=== PATIENT | female | born 1960 | race Caucasian/White ===

== ENCOUNTER → 2018-06-30 | Outpatient (CLI) | payer OTHER ==
--- NOTE | 2018-06-30 16:01 | XR ---
EXAMINATION TYPE: XR knee 4V LT DATE OF EXAM: 06/30/2018 COMPARISON: None HISTORY: Knee pain TECHNIQUE: 4 view left knee FINDINGS: Joint spaces are preserved. No joint effusion is evident. Soft tissues are unremarkable. IMPRESSION: 1. Normal 4 view left knee
== END | disposition home or self-care (01) ==
LOC: RADXRMAIN 15:39
PROVIDERS: ATTEND Family Medicine
DX: M25.562 Pain in left knee (principal)

== ENCOUNTER → 2019-03-15 | Outpatient (CLI) | payer OTHER ==
[2019-03-15 13:19] VITALS: BP 132/75; PULSE 85; RESP 18
--- NOTE | 2019-03-16 15:29 | P.PAINCN ---
History of Present Illness - Reason for Consult Consult date: 03/15/19 - History of Present Illness This is a 58-year-old patient referred who presents with chronic neck pain with radiation to left lateral arm and forearm with associated numbness in this region which began approximately 1.5 months ago. She denies any inciting event. She was last seen in our clinic in 2014 at which point we did a series of cervical epidural steroid injections. Patient had complete resolution of pain from this, until it returned about 1.5 months ago. She reports that her current pain complaint today is similar to the pain she experienced prior to these injections. Pain is described as constant, worse with sitting, better with medications. The pain is worse at night. Patient has been taking medications from primary care physician including gabapentin 300 mg 3 times a day and meloxicam every other day with some relief. Patient denies adverse drug effects from medications. Patient also denies new-onset weakness, bowel/bladder incontinence, or any other signs or symptoms of cauda equina syndrome. There are no signs of acute intoxication, and no indications of medication diversion or overuse. She has not had surgery or physical therapy recently. In addition to above, 13-point review of systems is also negative for chest pain, shortness of breath, changes in vision, changes in hearing, new onset weakness, abdominal pain, diarrhea, extreme fatigue, malaise, fever, skin changes, homicidal or suicidal ideation, or bowel or bladder incontinence. Physical exam: Vital Signs: Reviewed in EMR GENERAL: Well appearing, in no acute distress PSYCH: Mood and affect is appropriate. Awake, alert, and oriented SKIN: Skin color, texture, turgor normal, no rashes or lesions HEENT: Normocephalic, atraumatic. EOM intact CV: No pedal edema RESP: Respirations are unlabored, no audible wheezing GI: Abdomen non-distended MUSCULOSKELETAL: Bilateral upper and lower extremity strength is normal and symmetric. No atrophy or tone abnormalities are noted. Neck: Pain to palpation over the cervical paraspinous muscles. Spurling negative, Axial Loading Test negative, Redman's sign negative. No obvious deformity or signs of trauma. Normal cervical lordotic curve and mildly limited cervical spine range of motion Extremities: Peripheral joint ROM is full and pain free without obvious instability or laxity in all four extremities. No edema or skin discolorations noted. Gait: Gait is normal NEUR: Bilateral upper extremity coordination and muscle stretch reflexes are physiologic and symmetric. Reduced sensation to light touch in the lateral aspect of left arm and forearm. Cranial nerves are grossly intact. Imaging: Cervical spine MRI from 2013 shows a C5-6 disc herniation with indentation and narrowing of the anterior subarachnoid space. Patient has not had any further imaging since 2014 Assessment: 1. Cervical radiculopathy 2. Cervicalgia Plan: 1. Explanation: Opioid and psychological risk scores were reviewed. Diagnoses, prognoses, and multiple treatment options including but not limited to physical therapy, interventional therapies, adjuvant medical therapies, narcotic medication therapies, and surgery were discussed with the patient and all questions were answered to the patient's satisfaction. 2. Opioid agreement: None 3. Counseling: The patient was counseled extensively on SMOKING CESSATION, BODY MASS INDEX, EXERCISE. Specifically, the patient was instructed regarding the importance of smoking cessation, weight control, and exercise in the context of both chronic pain and overall health. 4. Procedures: None currently, we'll consider repeat cervical epidural injections after cervical MRI is reviewed 5. Consultations: None 6. Investigations: C-spine MRI ordered today 7. Medications: Encouraged patient to discuss increasing gabapentin dose with primary care physician 8. Disposition: Return to clinic following C-spine MRI Past Medical History Past Medical History: Hyperlipidemia, Hypertension, Musculoskeletal Disorder, Osteoarthritis (OA), Thyroid Disorder Additional Past Medical History / Comment(s): chronic back pain,CARPAL TUNNEL LUCIANO. WRISTS History of Any Multi-Drug Resistant Organisms: None Reported Past Surgical History: Section, Tonsillectomy, Tubal Ligation Additional Past Surgical History / Comment(s): THYROIDECTOMY Past Anesthesia/Blood Transfusion Reactions: No Reported Reaction Smoking Status: Current every day smoker - Past Family History Mother Family Medical History: Cancer Additional Family Medical History / Comment(s): siste cancer Father Family Medical History: Dementia Sister(s) Family Medical History: Cancer Additional Family Medical History / Comment(s): lining of stomach CA Medications and Allergies Home Medications Medication Instructions Recorded Confirmed Type Calcium Carbonate/Vitamin D3 600 mg PO BID 06/27/14 03/10/19 History [Calcium 600 + Vit D Tablet] Gabapentin 300 mg PO TID 06/27/14 03/10/19 History Levothyroxine Sodium [Synthroid] 112 mcg PO DAILY 06/27/14 03/10/19 History Lisinopril 5 mg PO DAILY 06/27/14 03/10/19 History Meloxicam 15 mg PO Q2D 06/27/14 03/10/19 History Hydrochlorothiazide [Hydrodiuril] 25 mg PO DAILY 08/11/14 03/10/19 History Niacin [Niacin ER] 500 mg PO DAILY 08/11/14 03/10/19 History Gemfibrozil [Lopid] 600 mg PO AC-BID 03/10/19 03/10/19 History Allergies Allergy/AdvReac Type Severity Reaction Status Date / Time penicillin G Allergy Unknown Verified 03/10/19 15:16 Childhood PQRS Measure Charge Sheet Measure #130: Documentation of Current Meds in Medical Chart: Patient's medications documented in chart Measure #226: Tobacco Use: Screen & Cessation Intervention: Pt screened for tobacco use AND intervention given Measure #111: Pneumonia Vaccination: Pneumococcal vaccine NOT administered or previously given Measure #47: Advance Care Plan: Advance care planning discussed & documented, pt chose/unable to give Measure #412: Opioid Treatment Agreement: No documentation of signed opioid treatment agreement Measure #317: Preventitive Care & Scrn High Bld Press & F/U: Normal blood pressure, f/u not required Measure #128: Body Mass Index (BMI) Screening & Follow-up: BMI documented ABOVE normal parameters - f/u documented Measure #131: Pain Assessment & Follow-up: Pain positive & plan documented, Follow-up scheduled Measure #431: Unhealthy Alcohol Use Preventative Care & Scrn: Patient not identified as an unhealthy alcohol user PQRS Narrative: Smoking Status Current every day smoker Pain Intensity [None] 0 Scale Used Numeric (1 - 10) Hx Alcohol Use (MH) No Home Medications: Ambulatory Orders Calcium Carbonate/Vitamin D3 [Calcium 600 + Vit D Tablet] 600 mg PO BID 06/27/14 Gabapentin 300 mg PO TID 06/27/14 Levothyroxine Sodium [Synthroid] 112 mcg PO DAILY 06/27/14 Lisinopril 5 mg PO DAILY 06/27/14 Meloxicam 15 mg PO Q2D 06/27/14 Hydrochlorothiazide [Hydrodiuril] 25 mg PO DAILY 08/11/14 Niacin [Niacin ER] 500 mg PO DAILY 08/11/14 Gemfibrozil [Lopid] 600 mg PO AC-BID 03/10/19
== END | disposition home or self-care (01) ==
LOC: PNWHC3 11:57
PROVIDERS: ATTEND Anesthesiology
DX: G89.29 Other chronic pain (principal); M54.12 Radiculopathy, cervical region; I10 Essential (primary) hypertension; E78.5 Hyperlipidemia, unspecified; F17.200 Nicotine dependence, unspecified, uncomplicated; Z79.899 Other long term (current) drug therapy
CPT/HCPCS: 99211

== ENCOUNTER → 2019-03-29 | Outpatient (CLI) | payer OTHER ==
[2019-03-29 13:04] VITALS: BP 128/76; PULSE 90; RESP 16
--- NOTE | 2019-03-29 15:49 | P.PAINPG ---
Subjective Progress Note Date: 03/29/19 This is a 58-year-old patient who presents with chronic neck pain with radiation to left lateral arm and forearm with associated numbness in this region which began approximately 1.5 months ago. She had similar pain complaints in 2014 at which point we did a series of cervical epidural steroid injections. Patient had complete resolution of pain from this, until it returned about 1.5 months ago. We last evaluated patient in February and recommended a cervical spine MRI. She returns to clinic today to discuss the results of this. See results below. She does not report any new change in symptomatology since last visit stop Patient has been taking medications from primary care physician including gabapentin 300 mg 3 times a day and meloxicam every other day with some relief. Patient denies adverse drug effects from medications. Patient also denies new- onset weakness, bowel/bladder incontinence, or any other signs or symptoms of cauda equina syndrome. There are no signs of acute intoxication, and no indications of medication diversion or overuse. She has not had surgery or physical therapy recently. In addition to above, 13-point review of systems is also negative for chest pain, shortness of breath, changes in vision, changes in hearing, new onset weakness, abdominal pain, diarrhea, extreme fatigue, malaise, fever, skin changes, homicidal or suicidal ideation, or bowel or bladder incontinence. Physical exam: Vital Signs: Reviewed in EMR GENERAL: Well appearing, in no acute distress PSYCH: Mood and affect is appropriate. Awake, alert, and oriented SKIN: Skin color, texture, turgor normal, no rashes or lesions HEENT: Normocephalic, atraumatic. EOM intact CV: No pedal edema RESP: Respirations are unlabored, no audible wheezing GI: Abdomen non-distended MUSCULOSKELETAL: Bilateral upper and lower extremity strength is normal and symmetric. No atrophy or tone abnormalities are noted. Neck: Pain to palpation over the cervical paraspinous muscles. Spurling negative, Axial Loading Test negative, Redman's sign negative. No obvious deformity or signs of trauma. Normal cervical lordotic curve and mildly limited cervical spine range of motion Extremities: Peripheral joint ROM is full and pain free without obvious instability or laxity in all four extremities. No edema or skin discolorations noted. Gait: Gait is normal NEUR: Bilateral upper extremity coordination and muscle stretch reflexes are physiologic and symmetric. Reduced sensation to light touch in the lateral aspect of left arm and forearm as well as all 5 fingers. Cranial nerves are grossly intact. Imaging: Cervical MRI done on 03/26/2019 at [facility] shows herniated discs at C5-6 with possible displacement of anterior portion of cervical cord. She also has mild disc herniations at C3-4 and C4-5. Assessment: 1. Cervical radiculopathy 2. Cervicalgia Plan: 1. Procedures: Will schedule left paramedian C7-T1 epidural steroid injection. 2. The patient was counseled extensively on SMOKING CESSATION. The patient does not seem motivated to stop smoking. 3. Medications: Per primary care physician. Had recommended discussion with PCP regarding increasing gabapentin dosage. Disposition: For above-mentioned procedure Objective - Vital Signs Vital signs: Vital Signs Temp Pulse 90 03/29/19 12:41 Resp 16 03/29/19 12:41 BP 128/76 03/29/19 12:41 Pulse Ox 95 03/29/19 12:41 Intake & Output 03/28/19 03/29/19 03/29/19 18:59 06:59 18:59 Weight 72.121 kg PQRS Measure Charge Sheet Measure #130: Documentation of Current Meds in Medical Chart: Patient's medications documented in chart Measure #226: Tobacco Use: Screen & Cessation Intervention: Pt screened for tobacco use AND intervention given Measure #111: Pneumonia Vaccination: Pneumococcal vaccine NOT administered or previously given Measure #47: Advance Care Plan: Advance care planning discussed & documented, pt chose/unable to give Measure #412: Opioid Treatment Agreement: No documentation of signed opioid treatment agreement Measure #317: Preventitive Care & Scrn High Bld Press & F/U: Normal blood pressure, f/u not required Measure #128: Body Mass Index (BMI) Screening & Follow-up: BMI documented ABOVE normal parameters - f/u documented Measure #131: Pain Assessment & Follow-up: Pain positive & plan documented, Follow-up scheduled Measure #431: Unhealthy Alcohol Use Preventative Care & Scrn: Patient not identified as an unhealthy alcohol user PQRS Narrative: Smoking Status Current every day smoker Blood Pressure 128/76 Pain Intensity [Left Back] 5 Scale Used Numeric (1 - 10) Hx Alcohol Use (MH) No Home Medications: Ambulatory Orders Calcium Carbonate/Vitamin D3 [Calcium 600 + Vit D Tablet] 600 mg PO BID 06/27/14 Gabapentin 600 mg PO TID 06/27/14 Levothyroxine Sodium [Synthroid] 112 mcg PO DAILY 06/27/14 Lisinopril 5 mg PO DAILY 06/27/14 Meloxicam 15 mg PO Q2D 06/27/14 Hydrochlorothiazide [Hydrodiuril] 25 mg PO DAILY 08/11/14 Niacin [Niacin ER] 500 mg PO DAILY 08/11/14 Gemfibrozil [Lopid] 600 mg PO AC-BID 03/10/19 Controlled Substance Measures - Controlled Substance Measures Is patient prescribed a controlled substance at discharge?: No
== END ==
LOC: PNWHC3 12:10
PROVIDERS: ATTEND Anesthesiology
DX: M54.12 Radiculopathy, cervical region (principal); F17.200 Nicotine dependence, unspecified, uncomplicated; Z79.899 Other long term (current) drug therapy; Z79.1 Long term (current) use of non-steroidal anti-inflammatories (NSAID)
CPT/HCPCS: 99211

== ENCOUNTER 2019-04-14 08:31 | Day surgery (SDC) | payer OTHER ==
[2019-04-09 11:17] VITALS: BMI 31.0
[~2019-04-14 08:31] MED LIST: LACTATED RINGERS 1,000 ML IV SCH
[2019-04-14] MEDS ORDERED: LIDOCAINE 1% 20 ML VIAL (10MG/ML) FOR IV START INTRADERMA ONE (09:28)
[2019-04-14 09:36] VITALS: TEMP 97.7
[2019-04-14 11:10] VITALS: BP 121/79; PULSE 72; RESP 18
--- NOTE | 2019-04-14 11:24 | P.PCN ---
Date of Procedure: 04/14/19 Procedure(s) Performed: Diagnosis: Cervical radiculopathy Cervical degenerative disc disease POSTOPERATIVE DIAGNOSIS: Diagnoses: Cervical radiculopathy Cervical degenerative disc disease PROCEDURE Cervical Epidural steroid injection under fluoroscopic guidance at the C7-T1 interspace using left paramedian approach Cervical epidurogram ANESTHESIA: Local with 1% lidocaine 3 ml and IV sedation with Versed and fentanyl Fluoroscopy was used for the procedure and images were saved in the radiology portion of the chart. EBL: Minimal PROCEDURE INDICATION: The patient presents with cervical radicular symptoms unresponsive to conservative treatment. This is the first cervical epidural steroid injection. PROCEDURE DESCRIPTION / TECHNIQUE: The patient was seen and identified in the preoperative area. Risks, benefits, complications including but not limited to infections ,bleeding ,allergic reaction to the medications ,nerve damage and incomplete pain relief, and alternatives were discussed with the patient. The patient agreed to proceed with the procedure and signed the consent. IV was started, and vital signs were stable. Patient was taken to the OR and time out was completed. The patient was placed in the prone position on procedure table and a pillow was placed under the chest area. The cervical area was prepped and draped in the usual sterile fashion. Conscious sedation was used during the procedure to decrease patients anxiety. Vital signs was monitored during the entire procedure. Using anterior-posterior fluoroscopy, the C7-T1 interlaminar space was identified and the skin over this site was marked and then infiltrated with 1% lidocaine subcutaneously. Subsequently, a 20-gauge Tuohy epidural needle was inserted and advanced toward the epidural space using the loss of resistance technique and guided by AP and 50 oblique fluoroscopy. The correct needle position in the epidural space was verified. After negative aspiration for blood and CSF and in the absence of paresthesias, Isovue 200 2 mL's was injected under live fluoroscopy with good epidural spread. After negative aspiration, a 5 ml mixture containing 10 mg of dexamethasone, 3 mL of preservative free normal saline and 1 mL of 1% lidocaine was injected. Needle was withdrawn intact, skin was cleansed, and bandages were applied. COMPLICATIONS: None DISPOSITION / PLANS: The patient was placed in a supine position and transferred to the recovery area in a stable condition for observation. There was no evidence of lower extremity motor or sensory deficit after the procedure. Patient was discharged from the recovery room after meeting discharge criteria. Home discharge instructions were given to the patient by the staff. The patient will be scheduled for repeat procedure in 4 weeks.
--- NOTE | 2019-04-14 12:50 | FL ---
Fluoroscopy INDICATION: Pain FINDINGS: Fluoroscopy time: 10 seconds. Images obtained: 4. IMPRESSIONS: 1. Documentation of fluoroscopy.
== END 2019-04-14 11:25 | disposition home or self-care (01) ==
LOC: ORPAIN 08:31
PROVIDERS: ATTEND Anesthesiology
DX: M50.11 Cervical disc disorder with radiculopathy, high cervical region (principal); F17.200 Nicotine dependence, unspecified, uncomplicated; Z79.1 Long term (current) use of non-steroidal anti-inflammatories (NSAID); Z79.890 Hormone replacement therapy; Z79.899 Other long term (current) drug therapy
CPT/HCPCS: 62321; J2250; J1100; J3010; Q9966; 99152

== ENCOUNTER 2019-05-03 08:16 | Day surgery (SDC) | payer OTHER ==
[2019-04-28 14:32] VITALS: BMI 31.0
[2019-05-03 09:17] VITALS: RESP 16; TEMP 97
[2019-05-03] MEDS ORDERED: LIDOCAINE 1% 20 ML VIAL (10MG/ML) FOR IV START INTRADERMA ONE (09:24)
--- NOTE | 2019-05-03 10:13 | P.PCN ---
Date of Procedure: 05/03/19 Procedure(s) Performed: . PROCEDURE 1. Cervical epidural steroid injection under fluoroscopic guidance, C7-T1 (fluoroscopy images available in the radiology department ) 2. Cervical epidurogram. PREOPERATIVE DIAGNOSIS: 1- Cervical Degenerative Disc Diseases 2- Cervical radiculopathy. POSTOPERATIVE DIAGNOSIS: : 1- Cervical Degenerative Disc Diseases , 2- Cervical radiculopathy. ANESTHESIA: Local anesthesia with lidocaine 1 % , and moderate sedation, with Versed 2 mg and Fentanyl 50 mcg. EBL 0 PROCEDURE INDICATION: The patient with neck pain and radiculitis unresponsive to conservative treatment consents for procedure. PROCEDURE DESCRIPTION / TECHNIQUE: The patient was seen and identified in the preoperative area. Risks, benefits, complications, including but not limited to infections ,bleeding , allergic reactions to the medications ,and not complete pain releife, and alternatives were discussed with the patient, the patient agreed to proceed with the procedure and signed the consent. Patient was taken to the OR and time out was completed. The patient was placed in the prone position on the procedure table. A pillow was placed under the patients chest to increase the cervical interlaminar space. The cervical area was prepped and draped in the usual sterile fashion. Vital signs were closely monitored during the procedure. Conscious sedation was used during the procedure to decrease patients anxiety. Using anterior-posterior fluoroscopy, the C7-T1 interlaminar space was identified and the skin over this site was marked and then infiltrated with 1% lidocaine subcutaneously. Subsequently, a 20-gauge 3-1/2-inch Tuohy epidural needle was inserted and advanced toward the epidural space by means of the ``hanging-drop technique and guided by AP and lateral fluoroscopy. The correct needle position in the epidural space was verified with the injection of 2 mL of the water soluble contrast dye Isovue-200 and observing an excellent epidurogram with the epidural spread of the dye, after negative aspiration for blood and CSF and in the absence of paresthesias. Again after negative aspiration, mixture containing 20 mg Dexamethasone and 2 ml of preservative- free normal saline injected and a washout of epidurogram was seen. Needle was withdrawn intact, skin was cleansed, and bandages were applied. Complications= none. Disposition= patient was placed in supine position and transferred to the recovery room area in stable condition and there was no evidence of upper or lower extremity motor or sensory deficit after the procedure patient was discharged from recovery room after discharge criteria met and home discharge instructions was given by the staff and patient will follow with the pain clinic in 2-4 weeks
[2019-05-03] MEDS ORDERED: IV FLUID CONTINUATION 1,000 ML IV ONE ×2 (10:17)
--- NOTE | 2019-05-03 10:31 | FL ---
EXAMINATION TYPE: FL guided pain mgmt statistic DATE OF EXAM: 05/03/2019 CLINICAL HISTORY: Neck pain. TECHNIQUE: Fluoroscopy. COMPARISON: None. FINDINGS: Fluoroscopic guidance was provided during pain relief procedure performed by Dr. Guerrero . A total of 3 seconds of fluoroscopic time was utilized during the procedure and two spot images ar e acquired. Images acquired shows needle localization at roughly C5 level. IMPRESSION: As Above.
[2019-05-03 10:35] VITALS: BP 112/75; PULSE 86
== END 2019-05-03 10:47 | disposition home or self-care (01) ==
LOC: ORPAIN 08:16
PROVIDERS: ATTEND Specialist
DX: M50.10 Cervical disc disorder with radiculopathy, unspecified cervical region (principal); Z88.0 Allergy status to penicillin
CPT/HCPCS: 62321; J2250; J1100; J3010; Q9966

== ENCOUNTER → 2019-06-16 | Outpatient (CLI) | payer OTHER ==
[2019-06-16 12:00] VITALS: BP 132/72; PULSE 82; RESP 18
--- NOTE | 2019-06-16 12:43 | P.PAINPG ---
Subjective Progress Note Date: 06/16/19 This is a follow-up visit for this 58 years old female with a history of severe neck pain with radiation to the upper extremity, she is diagnosed with cervical radiculopathy and cervical degenerative disc disease, status post cervical epidural steroid injections x2, should she reported that her pain improved significantly she is able to function without any pain, she denies any numbness or tingling sensation, no motor or sensory deficits. Objective - Vital Signs Vital signs: Vital Signs Temp Pulse 82 06/16/19 11:55 Resp 18 06/16/19 11:55 BP 132/72 06/16/19 11:55 Pulse Ox 96 06/16/19 11:55 - Exam Physical Examinations : -Constitutiona : Cooperative , not in acute distress . -HEENT : nech : supple , no Lymphadenopathy , normal thyroid size . eyes : no ptosis , no icterus, no photophobia . - neurologic : Cranial nerve II to XII intact , no focal neurological deffecit . -psychatric : alert , oriented X 3 , appropriate affect , intact judgment and insight . -Lymphatic : no Lymphadenopathy . - musculoskeltal : Cervical Spine motor stregnth in the deltoid and biceps, normal right side , normal Left side motor stregnth biceps and the wrist extensors normal right side ,normal left side . motor stregnth in the triceps muscle . normal Right side , normal Left side Lumber spine moter stegnth lower extremities ,thigh and legs 5/5 Right side , 5/5 Left side Assessment and Plan Plan: Assessment and plan= cervical radiculopathy, cervical degenerative disc disease Pain improved after cervical epidural steroid injections She will follow up in the pain clinic when necessary Time with Patient: Less than 30 PQRS Measure Charge Sheet Measure #130: Documentation of Current Meds in Medical Chart: Patient's medications documented in chart Measure #226: Tobacco Use: Screen & Cessation Intervention: Pt screened for tobacco use AND intervention given Measure #111: Pneumonia Vaccination: Pneumococcal vaccine NOT administered or previously given Measure #47: Advance Care Plan: Advance care planning discussed & documented, pt chose/unable to give Measure #412: Opioid Treatment Agreement: No documentation of signed opioid treatment agreement Measure #408: Opioid Therapy Follow-up Evaluation: Patient had NO f/u eval minimum every 3 months during opioid therapy Measure #317: Preventitive Care & Scrn High Bld Press & F/U: Normal blood pressure, f/u not required Measure #128: Body Mass Index (BMI) Screening & Follow-up: BMI documented ABOVE normal parameters - f/u documented Measure #131: Pain Assessment & Follow-up: Pain positive & plan documented, Follow-up scheduled, Follow-up PRN Measure #431: Unhealthy Alcohol Use Preventative Care & Scrn: Patient not identified as an unhealthy alcohol user PQRS Narrative: Smoking Status Heavy tobacco smoker Blood Pressure 132/72 Pain Intensity [None] 0 Scale Used Numeric (1 - 10) Hx Alcohol Use (MH) No Home Medications: Ambulatory Orders Calcium Carbonate/Vitamin D3 [Calcium 600 + Vit D Tablet] 600 mg PO BID 06/27/14 Gabapentin 600 mg PO BID 06/27/14 Levothyroxine Sodium [Synthroid] 112 mcg PO DAILY 06/27/14 Lisinopril 5 mg PO DAILY 06/27/14 Meloxicam 15 mg PO Q2D 06/27/14 Hydrochlorothiazide [Hydrodiuril] 25 mg PO DAILY 08/11/14 Niacin [Niacin ER] 500 mg PO DAILY 08/11/14 Gemfibrozil [Lopid] 600 mg PO AC-BID 03/10/19 Controlled Substance Measures - Controlled Substance Measures Is patient prescribed a controlled substance at discharge?: No
== END | disposition home or self-care (01) ==
LOC: PNWHC3 11:32
PROVIDERS: ATTEND Specialist
DX: G89.29 Other chronic pain (principal); M54.12 Radiculopathy, cervical region; M50.30 Other cervical disc degeneration, unspecified cervical region; Z87.891 Personal history of nicotine dependence; Z79.1 Long term (current) use of non-steroidal anti-inflammatories (NSAID); Z79.899 Other long term (current) drug therapy
CPT/HCPCS: 99211

== ENCOUNTER 2019-09-20 07:17 | Day surgery (SDC) | payer OTHER ==
[2019-09-17 10:13] VITALS: BMI 30.4
[~2019-09-20 07:17] MED LIST changes: +DEXAMETHASONE SOD PHOSPHATE 10 MG/ML 1 ML VIAL ONE; +IOPAMIDOL M200 10 ML VIAL ONE; -LACTATED RINGERS 1,000 ML IV SCH; +MIDAZOLAM 2 MG/2 ML VIAL ONE; +fentaNYL (PF) 50 MCG/ML 2 ML AMP ONE
[2019-09-20 07:51] VITALS: RESP 16; TEMP 98.3
[2019-09-20] MEDS: LACTATED RINGERS 1,000 ML IV SCH ×2 (07:56→08:33)
--- NOTE | 2019-09-20 08:51 | P.PCN ---
Date of Procedure: 09/20/19 Procedure(s) Performed: PROCEDURE 1. Cervical epidural steroid injection under fluoroscopic guidance, C7-T1 (fluoroscopy images available in the radiology department ) 2. Cervical epidurogram. PREOPERATIVE DIAGNOSIS: 1- Cervical Degenerative Disc Diseases 2- Cervical radiculopathy. POSTOPERATIVE DIAGNOSIS: : 1- Cervical Degenerative Disc Diseases , 2- Cervical radiculopathy. ANESTHESIA: moderate sedation, with Versed 2 mg ,and Fentanyl 50 mcg. EBL 0 PROCEDURE INDICATION: The patient with neck pain and radiculitis unresponsive to conservative treatment consents for procedure. PROCEDURE DESCRIPTION / TECHNIQUE: The patient was seen and identified in the preoperative area. Risks, benefits, complications, including but not limited to infections ,bleeding , allergic reactions to the medications ,and not complete pain releife, and alternatives were discussed with the patient, the patient agreed to proceed with the procedure and signed the consent. Patient was taken to the OR and time out was completed. The patient was placed in the prone position on the procedure table. A pillow was placed under the patients chest to increase the cervical interlaminar space. The cervical area was prepped and draped in the usual sterile fashion. Vital signs were closely monitored during the procedure. Conscious sedation was used during the procedure to decrease patients anxiety. Using anterior-posterior fluoroscopy, the C7-T1 interlaminar space was identified and the skin over this site was marked and then infiltrated with 1% lidocaine subcutaneously. Subsequently, a 20-gauge 3-1/2-inch Tuohy epidural needle was inserted and advanced toward the epidural space by means of the ``hanging-drop technique and guided by AP and lateral fluoroscopy. The correct needle position in the epidural space was verified with the injection of 2 mL of the water soluble contrast dye Isovue-200 and observing an excellent epidurogram with the epidural spread of the dye, after negative aspiration for blood and CSF and in the absence of paresthesias. Again after negative aspirat ion, mixture containing 20 mg Dexamethasone and 2 ml of preservative-free normal saline injected and a washout of epidurogram was seen. Needle was withdrawn intact, skin was cleansed, and bandages were applied. Complications= none. Disposition= patient was placed in supine position and transferred to the recovery room area in stable condition and there was no evidence of upper or lower extremity motor or sensory deficit after the procedure patient was discharged from recovery room after discharge criteria met and home discharge instructions was given by the staff and patient will follow with the pain clinic in 2-4 weeks
[2019-09-20] MEDS ORDERED: IV FLUID CONTINUATION 600 ML IV ONE (08:55)
[2019-09-20 09:13] VITALS: BP 122/80; PULSE 90
--- NOTE | 2019-09-20 09:13 | FL ---
EXAMINATION TYPE: FL guided pain mgmt statistic DATE OF EXAM: 09/20/2019 CLINICAL HISTORY: Neck pain. TECHNIQUE: Fluoroscopy. COMPARISON: None. FINDINGS: Fluoroscopic guidance was provided during pain relief procedure performed by Dr. Guerrero . A total of 4 seconds of fluoroscopic time was utilized during the procedure and 0 spot images are acquired. IMPRESSION: As Above.
== END 2019-09-20 09:22 | disposition home or self-care (01) ==
LOC: ORPAIN 07:17
PROVIDERS: ATTEND Anesthesiology
DX: M50.10 Cervical disc disorder with radiculopathy, unspecified cervical region (principal); F41.9 Anxiety disorder, unspecified; Z88.0 Allergy status to penicillin
CPT/HCPCS: 62321; J2250; J1100; J3010; Q9966; 99152

== ENCOUNTER → 2019-10-19 | Outpatient (CLI) | payer OTHER ==
[2019-10-19 11:05] VITALS: BP 131/84; PULSE 110; RESP 18
--- NOTE | 2019-10-19 11:26 | P.PN ---
Progress Note - Text Progress Note Date: 10/19/19 This is a 59-year-old lady with long-standing history of neck pain with radiation to the left arm. The patient had multiple epidural steroid injection which had been helping her until recently when she stopped finding any benefits from these injections. She has numbness in the left arm with increasing pain in the left shoulder. Her MRI showed disc herniation at the C5-C6 level with indentation of the spinal cord. The patient takes 3 pills of tramadol which is not helping her pain and she used to be on Neurontin which also had to stop using because of lack of benefits. The patient denies any bowel or bladder dysfunction or any weakness in the left arm. She does have constant numbness as she states and pain radiating to the left hand. Patient denies new-onset weakness, bowel/bladder incontinence, or any other signs or symptoms of cauda equina syndrome. There are no signs of acute intoxication, and no indications of medication diversion or overuse. In addition to above, 13-point review of systems is also negative for chest pain, shortness of breath, changes in vision, changes in hearing, new onset weakness, abdominal pain, diarrhea, extreme fatigue, malaise, fever, skin changes, homicidal or suicidal ideation, or bowel or bladder incontinence. Vital Signs: Reviewed in EMR Gen: AAOx3, NAD HEENT: PERRLA,hearing grossly normal Pulm: resp unlabored Heart: Regular Neck: supple, trachea midline Neuro exam of the upper extremities: Produced but symmetrical muscle strength to 4 out of 4 bilaterally in the upper extremities. Normal and symmetrical deep tendon reflexes bilaterally and symmetrically. Straight leg raising test: Chito's test: Range of motion of the lumbar spine: Compression test is negative Tenderness in the paravertebral musculature: No tenderness in the cervical paravertebral musculature Neuro: CN II-XII grossly intact, Imaging: Reviewed in EMR/chart Assessment: Left cervical radiculopathy due to disc herniation at the C5-C6 level with indentation of the cervical spinal cord Failure to respond to cervical epidural steroid injection Plan: 1. Explanation: Opioid and psychological risk scores were reviewed. Diagnoses, prognoses, and multiple treatment options including but not limited to physical therapy, interventional therapies, adjuvant medical therapies, narcotic medication therapies, and surgery were discussed with the patient and all questions were answered to the patient's satisfaction. 2. Opioid agreement: Signed with the patient and the patient is warned not to use opioids while driving or before driving and not to combine opioids with benzodiazepines or alcohol. 3. Counseling: The patient was counseled extensively on SMOKING CESSATION, BODY MASS INDEX, EXERCISE. Specifically, the patient was instructed regarding the importance of smoking cessation, obesity, and exercise in the context of both chronic pain and overall health. 4. Procedures: None 5. Consultations: Refer to neurosurgery for evaluation 6. Investigations: None 7. Medications: None 8. Disposition: Return to clinic as needed 9. Maps were reviewed and were appropriate. PQRS measures: 1-Patient's medications are documented in the chart. 2-Tobacco use is positive, counseling given 3-Patient has not had a pneumococcal vaccine. 4-Advanced care planning discussed, patient unable to give 5-Opioid contract signed with the patient. 6-Pain positive, follow-up visit or procedure scheduled 7-Patient's blood pressure measured and documented within normal limits. The patient will follow up with his primary care physician. 8-Patient's weight was measured, and body mass index ABOVE the normal limits, and counseling was done. Patient instructed to follow up with PCP. 9-Patient WAS NOT identified as an unhealthy alcohol user.
== END | disposition home or self-care (01) ==
LOC: PNWHC3 10:47
PROVIDERS: ATTEND Anesthesiology
DX: G89.29 Other chronic pain (principal); M50.122 Cervical disc disorder at C5-C6 level with radiculopathy
CPT/HCPCS: 99211

== ENCOUNTER → 2019-11-12 | Outpatient (CLI) | payer OTHER ==
--- NOTE | 2019-11-12 12:47 | XR ---
EXAMINATION TYPE: XR chest 2V DATE OF EXAM: 11/12/2019 COMPARISON: NONE HISTORY: Presurgical study. TECHNIQUE: Frontal and lateral views of the chest are obtained. FINDINGS: There is some mild chronic parenchymal changes without suspicious focal air space opacity, pleural effusion, or pneumothorax seen. Surgical clips right paratracheal region and supraclavicular level noted. The cardiac silhouette size is upper limits of normal. The osseous structures are int act. IMPRESSION: Chronic changes without acute process.
[2019-11-12 12:48] LABS: Basophils % (A) 0 %; Eosinophils % (A) 0 %; HCT 41.2 % (34.0-46.0); HGB 13.8 gm/dL (11.4-16.0); Lymphocytes # (A) 0.8 k/uL (1.0-4.8); Lymphocytes % (A) 11 %; MCH 32.9 pg (25.0-35.0); MCHC 33.4 g/dL (31.0-37.0); MCV 98.5 fL (80.0-100.0); Mean Platelet Volume 7.6; Monocytes # (A) 0.1 k/uL (0-1.0); Monocytes % (A) 2 %; Neutrophils # (A) 6.2 k/uL (1.3-7.7); Neutrophils % (A) 86 %; Platelet Count 401 k/uL (150-450); RBC 4.19 m/uL (3.80-5.40); RDW 12.2 % (11.5-15.5); WBC 7.2 k/uL (3.8-10.6)
[2019-11-12 12:58] LABS: Appearance,Urine Clear (Clear); Bilirubin,Urine Negative (Negative); Blood,Urine Negative (Negative); Color,Urine Colorless; Glucose,Urine (UA) Negative (Negative); Ketones,Urine Negative (Negative); Leukocyte Esterase,Urine Negative (Negative); Nitrite,Urine Negative (Negative); PH, Urine 6.5 (5.0-8.0); Protein,Urine Negative (Negative); Specific Gravity,Urine 1.008 (1.001-1.035); Urobilinogen,Urine <2.0 mg/dL (<2.0)
[2019-11-12 12:59] LABS: Calcium 9.8 mg/dL (8.4-10.2); Potassium 3.9 mmol/L (3.5-5.1)
[2019-11-12 13:07] LABS: INR 0.9 (<1.2); Prothrombin Time 9.6 sec (9.0-12.0)
[2019-11-12 13:08] LABS: Partial Thromboplastin Time 20.9 sec (22.0-30.0)
== END | disposition home or self-care (01) ==
LOC: LABWHC1 11:54
PROVIDERS: ATTEND Orthopaedic Surgery Orthopaedic Surgery of the Spine
DX: Z01.818 Encounter for other preprocedural examination (principal); M48.02 Spinal stenosis, cervical region
CPT/HCPCS: 36415; 71046; 80048; 81003; 85025; 85610; 85730; 93005

== ENCOUNTER 2020-12-18 10:11 | Inpatient (IN) | payer OTHER, SELFPAY ==
--- NOTE | 2020-12-18 11:43 | ED ---
Chest Pain HPI - General Chief Complaint: Chest Pain Stated Complaint: cardiac issues Time Seen by Provider: 12/18/20 10:11 Source: patient, RN notes reviewed Mode of arrival: ambulatory Limitations: no limitations - History of Present Illness Initial Comments: This is a 60-year-old female with no prior history of heart attack or cardiac disease was transfer from [facility] for evaluation of chest pain. 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 Patient EKG done also lab work initially negative for acute findings. Patient was transferred here for further evaluation and higher level of care. Dr. Byrne [facility] later with Dr. Grisel bo at this facility. Patient will be admitted and evaluated. He currently is asymptomatic with no chest pain or shortness of breath. MD Complaint: chest pain - Related Data Home Medications Medication Instructions Recorded Confirmed Levothyroxine Sodium [Synthroid] 112 mcg PO DAILY 06/27/14 12/18/20 Meloxicam 15 mg PO Q48H 06/27/14 12/18/20 lisinopriL [Lisinopril] 5 mg PO HS 06/27/14 12/18/20 hydroCHLOROthiazide [Hydrodiuril] 25 mg PO DAILY 08/11/14 12/18/20 traMADol HCL [Ultram] 50 mg PO Q6H 09/17/19 12/18/20 Acetaminophen Tab [Tylenol Tab] 1,000 mg PO ONCE PRN 12/18/20 12/18/20 Cholecalciferol [Vitamin D3 (25 50 mcg PO HS 12/18/20 12/18/20 Mcg = 1000 Iu)] Mag Hydrox/Aluminum Hyd/Simeth 30 ml PO ONCE PRN 12/18/20 12/18/20 [Mylanta Maximum Strength Liq] Niacin 500 mg PO HS 12/18/20 12/18/20 Allergies Allergy/AdvReac Type Severity Reaction Status Date / Time celecoxib [From Celebrex] Allergy Unknown Verified 11/17/19 08:57 penicillin G Allergy Unknown Verified 11/17/19 08:53 Childhood Review of Systems ROS Statement: Those systems with pertinent positive or pertinent negative responses have been documented in the HPI. ROS Other: All systems not noted in ROS Statement are negative. Past Medical History Past Medical History: Hyperlipidemia, Hypertension, Musculoskeletal Disorder, Osteoarthritis (OA), Thyroid Disorder Additional Past Medical History / Comment(s): chronic back pain,CARPAL TUNNEL LUCIANO. WRISTS, NUMBNESS LEFT ARM History of Any Multi-Drug Resistant Organisms: None Reported Past Surgical History: Section, Tonsillectomy, Tubal Ligation Additional Past Surgical History / Comment(s): THYROIDECTOMY, PAIN CLINIC PROCEDURE Past Anesthesia/Blood Transfusion Reactions: No Reported Reaction Past Psychological History: No Psychological Hx Reported Smoking Status: Current every day smoker Past Alcohol Use History: None Reported Past Drug Use History: None Reported - Past Family History Mother Family Medical History: Cancer Additional Family Medical History / Comment(s): sister cancer Father Family Medical History: Dementia Sister(s) Family Medical History: Cancer Additional Family Medical History / Comment(s): lining of stomach CA General Exam - General Exam Comments Initial Comments: This is a well-developed well-nourished awake alert oriented 3 female Limitations: no limitations General appearance: alert, in no apparent distress Head exam: Present: atraumatic, normocephalic, normal inspection Eye exam: Present: normal appearance, PERRL, EOMI. Absent: scleral icterus, conjunctival injection, periorbital swelling ENT exam: Present: normal exam, mucous membranes moist Neck exam: Present: normal inspection. Absent: tenderness, meningismus, lymphadenopathy Respiratory exam: Present: normal lung sounds bilaterally. Absent: respiratory distress, wheezes, rales, rhonchi, stridor Cardiovascular Exam: Present: regular rate, normal rhythm, normal heart sounds. Absent: systolic murmur, diastolic murmur, rubs, gallop, clicks GI/Abdominal exam: Present: soft, normal bowel sounds. Absent: distended, ten derness, guarding, rebound, rigid Extremities exam: Present: normal inspection, full ROM, normal capillary refill. Absent: tenderness, pedal edema, joint swelling, calf tenderness Back exam: Present: normal inspection Neurological exam: Present: alert, oriented X3, CN II-XII intact Psychiatric exam: Present: normal affect, normal mood Skin exam: Present: warm, dry, intact, normal color. Absent: rash Course Vital Signs 12/18/20 12/18/20 10:16 11:23 Temperature 98.7 F Pulse Rate 105 H 101 H Respiratory 20 18 Rate Blood Pressure 125/75 114/77 O2 Sat by Pulse 99 97 Oximetry - Reevaluation(s) Reevaluation #1: 12/18/20 11:44 I did review the materials sent with the patient from [facility]. Chest Pain MDM - MDM Patient will be admitted for inpatient evaluation Disposition Clinical Impression: Chest pain, Unstable angina pectoris Disposition: ADMITTED IP TO THIS HOSP Condition: Fair Referrals: Dionicio Monae DO [Primary Care Provider] - 1-2 days
[2020-12-18] MEDS ORDERED: NITROGLYCERIN SL TABS 0.4 MG TAB SUBLINGUAL PRN ×2 (11:45→18:58)
[2020-12-18] MEDS ORDERED: MAG HYDROX/AL HYDROX/SIMETH 30 ML CUP PO PRN (11:47)
[2020-12-18] MEDS ORDERED: ACETAMINOPHEN TAB 500 MG TAB PO PRN (11:47)
--- NOTE | 2020-12-18 11:57 | ED ---
Medical Decision Making - Lab Data Lab Results 12/18/20 Range/Units 10:41 Troponin I 0.837 H* (0.000-0.034) ng/mL - EKG Data -: EKG Interpreted by Me EKG shows normal: sinus rhythm EKG Comments: Sinus rhythm 102 VT interval 160 QRS 68 QT since QTC 320/417 no definite acute changes and nonspecific ST changes. This is compared with EKGs done at [facility]. Dr. Xie will be notified. Disposition Clinical Impression: Chest pain, Unstable angina pectoris, NSTEMI (non-ST elevated myocardial infarction) Disposition: ADMITTED IP TO THIS HOSP Condition: Fair Referrals: Dionicio Monae DO [Primary Care Provider] - 1-2 days
[2020-12-18] MEDS: HEPARIN SOD,PORK IN 0.45% NACL 25,000 UNIT in 0.45% NACL 1 250ML.BAG IV SCH (12:03)
[2020-12-18] MEDS: NITROGLYCERIN OINT 1 INCH/GM PACKET TOPICAL SCH ×3 (12:03→23:43)
[2020-12-18] MEDS: traMADol 50 MG TAB PO SCH ×4 (12:03→23:43)
[2020-12-18] MEDS ORDERED: atenoloL 25 MG TAB PO STA (12:08)
[2020-12-18] MEDS ORDERED: ALPRAZolam 0.25 MG TAB PO PRN (14:23)
[2020-12-18] MEDS ORDERED: TEMAZEPAM 15 MG CAP PO PRN (14:23)
[2020-12-18] MEDS ORDERED: HYDROmorphone 0.5 MG/0.5 ML SYRINGE IVP PRN (14:23)
--- NOTE | 2020-12-18 15:46 | HP ---
HISTORY AND PHYSICAL DATE OF SERVICE: 12/18/2020 CHIEF COMPLAINT: Chest pain. HISTORY OF PRESENT ILLNESS: This 60-year-old woman with a past medical history of multiple medical problems, hypertension, hyperlipidemia, history of DJD, hypothyroid, section, being followed by Dr. Dionicio Monae in the outpatient setting. The patient has had chest pain for the last several days. 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 The patient had high blood pressure and tachycardia also. Currently, patient's EKG showed some ST-T changes. The initial troponin is found to be 0.83, indicating acute non-ST elevation myocardial infarction. Cardiology evaluation sought. Unstable angina protocol is being continued. There is no history of fever, rigors or chills. No history of headache, loss of consciousness or seizures. No shortness of breath at this time. PAST MEDICAL HISTORY: Hypertension, hyperlipidemia, history of DJD, history of hypothyroidism and chronic back pain. MEDICATIONS: Prior to admission, home medications are: Ultram, lisinopril, niacin, meloxicam, magnesium, levothyroxine, cholecalciferol, acetaminophen. ALLERGIES: CELEBREX, PENICILLIN-G. FAMILY HISTORY: History of cancer in sister. SOCIAL HISTORY: History of smoking, continued ongoing. REVIEW OF SYSTEMS: ENT: No diminished vision. No diminished hearing. CARDIOVASCULAR SYSTEM: As mentioned earlier. RESPIRATORY: As mentioned earlier. GI no nausea or vomiting. no dysuria. NERVOUS SYSTEM: No numbness or weakness. ALLERGY/IMMUNOLOGY: No asthma, hayfever. MUSCULOSKELETAL: As mentioned earlier. HEMATOLOGY/ONCOLOGY: No history of anemia. ENDOCRINE: No history of diabetes or hypothyroidism. CONSTITUTIONAL: As mentioned earlier. DERMATOLOGY: Negative. RHEUMATOLOGY: Negative. PSYCHIATRIC: as mentioned earlier. PHYSICAL EXAMINATION: Alert and oriented x3. Pulse is 105. Blood pressure 130/88, respirations 18. Temperature 98.7, pulse ox 98% on room air. HEENT: Conjunctivae normal. NECK: No JVD. CARDIOVASCULAR: S1, S2 muffled. RESPIRATORY: Breath sounds diminished in the bases. No rhonchi. No crackles. ABDOMEN: Soft, nontender. No mass palpable. LEGS: No edema. No swelling. NERVOUS SYSTEM: Higher functions as mentioned. Moves all four limbs. LYMPHATICS: No lymph nodes palpable in the neck, axillae or groin. SKIN: No ulcer. No rashes and no bleeding. JOINTS: No active deforming arthropathy. LAB STUDIES: EKG noted. Other labs are noted. ASSESSMENT: 1. Chest pain, possible acute hrf-SE-tidaxzr-elevation myocardial infarction with troponin 0.837. 2. History of hypertension. 3. Hyperlipidemia. 4. History of degenerative joint disease. 5. Hypothyroidism. 6. Chronic back pain. 7. History of Caesarean section. 8. History of continued ongoing nicotine dependence. 9. Obesity, body mass 38.6. RECOMMENDATIONS AND DISCUSSION: In this 60-year-old woman who presented with multiple complex medical issues, we will monitor the patient closely, continue unstable angina protocol. Continue with IV heparin. Otherwise I will order a 2D echo with Doppler. Repeat labs. Guarded prognosis because of multiple complex medical issues. Cardiology consultation for possible cardiac cath. Prognosis guarded. A copy of dictation being forwarded to Dr. Monae who is the primary physician. MMODL / IJN: [id number] / MTDD
[2020-12-18] MEDS: NICOTINE 14MG/24HR PATCH TRANSDERM SCH (18:55)
[2020-12-18] MEDS ORDERED: ATORVASTATIN 80 MG TAB PO STA (18:58)
[2020-12-18] MEDS ORDERED: SODIUM CHLORIDE 0.9% 1,000 ML in EMPTY BAG 1 BAG IV ONE (18:58)
--- NOTE | 2020-12-18 18:58 | P.CRDCN ---
History of Present Illness Consult date: 12/18/20 History of present illness: This is a 60-year-old female with history of smoking, hypertension and hypothyroidism, and also hypercholesterolemia who was admitted now with complaints of recurrent chest pain. She claims since Friday she has been having intermittent chest pains. This morning patient went to work at [employer] and had some discomfort lasted for an hour. She was evaluated in the emergency room and was advised to go to tertiary center for further care. Patient came to this hospital. Since admission couple of more troponin showed elevation suggestive of non-STEMI. Patient hasn't had any recurrence of chest pain. Patient claimed that her chest pain was relieved with nitroglycerin, and other hospital. We will continue the beta blockers, nitrates, aspirin and heparin. We will get an echocardiogram. Patient is advised to have a cardiac catheterization for definitive diagnosis, which is being scheduled for tomorrow Review of Systems REVIEW OF SYSTEMS: CONSTITUTIONAL:. Patient is doing well. No complaints of fever or chills EYES: Denies diplopia, blurring of vision EARS, NOSE, MOUTH, THROAT: Denies headaches, denies sore throat. CARDIOVASCULAR: Chest pain RESPIRATORY: Denies shortness of breath, denies cough. GASTROINTESTINAL: Denies change in appetite, denies abdominal pain, denies diarrhea GENITOURINARY: Denies hematuria, denies infections. MUSKULOSKELETAL: Denies pain, denies swelling. Denies any cramps or claudication INTEGUMENTARY: Denies rash, denies eczema. NEUROLOGICAL: Denies focal weakness, or visual disturbance. Denies any dizziness or syncope PSYCHIATRIC: Denies anxiety, denies depression. HEMATOLOGIC/LYMPHATIC: Denies any bleeding, denies enlarged lymph nodes. Past Medical History Past Medical History: Hyperlipidemia, Hypertension, Musculoskeletal Disorder, Osteoarthritis (OA), Thyroid Disorder Additional Past Medical History / Comment(s): chronic back pain,CARPAL TUNNEL LUCIANO. WRISTS, NUMBNESS LEFT ARM History of Any Multi-Drug Resistant Organisms: None Reported Past Surgical History: Section, Tonsillectomy, Tubal Ligation Additional Past Surgical History / Comment(s): THYROIDECTOMY, PAIN CLINIC PROCEDURE Past Anesthesia/Blood Transfusion Reactions: No Reported Reaction Past Psychological History: No Psychological Hx Reported Smoking Status: Current every day smoker Past Alcohol Use History: None Reported Past Drug Use History: None Reported - Past Family History Mother Family Medical History: Cancer Additional Family Medical History / Comment(s): sister cancer Father Family Medical History: Dementia Sister(s) Family Medical History: Cancer Additional Family Medical History / Comment(s): lining of stomach CA Medications and Allergies Home Medications Medication Instructions Recorded Confirmed Type Levothyroxine Sodium [Synthroid] 112 mcg PO DAILY 06/27/14 12/18/20 History Meloxicam 15 mg PO Q48H 06/27/14 12/18/20 History lisinopriL [Lisinopril] 5 mg PO HS 06/27/14 12/18/20 History hydroCHLOROthiazide [Hydrodiuril] 25 mg PO DAILY 08/11/14 12/18/20 History traMADol HCL [Ultram] 50 mg PO Q6H 09/17/19 12/18/20 History Acetaminophen Tab [Tylenol Tab] 1,000 mg PO ONCE PRN 12/18/20 12/18/20 History Cholecalciferol [Vitamin D3 (25 50 mcg PO HS 12/18/20 12/18/20 History Mcg = 1000 Iu)] Mag Hydrox/Aluminum Hyd/Simeth 30 ml PO ONCE PRN 12/18/20 12/18/20 History [Mylanta Maximum Strength Liq] Niacin 500 mg PO HS 12/18/20 12/18/20 History Allergies Allergy/AdvReac Type Severity Reaction Status Date / Time celecoxib [From Celebrex] Allergy Unknown Verified 11/17/19 08:57 penicillin G Allergy Unknown Verified 11/17/19 08:53 Childhood Physical Exam Vitals: Vital Signs Temp Pulse Resp BP Pulse Ox 12/18/20 16:37 88 18 109/72 98 12/18/20 13:39 105 H 18 138/81 98 12/18/20 11:23 101 H 18 114/77 97 12/18/20 10:16 98.7 F 105 H 20 125/75 99 Intake and Output 12/18/20 12/18/20 12/18/20 06:59 14:59 22:59 Other: Weight 75.75 kg GENERAL EXAM: Patient is alert and oriented and doesn't appear to be in any acute distress HEENT: Normocephalic. Normal reaction of pupils, equal size, normal range of extraocular motion. No erythema or exudates in the throat. NECK: No masses, no nuchal rigidity. CHEST: No chest wall deformity. LUNGS: Equal air entry with no crackles or wheeze. HEART: S1 and S2 normal with no audible mumurs or gallops. Regular rhythm, femorals equal on both sides.. ABDOMEN: No hepatosplenomegaly, normal bowel sounds, no guarding or rigidity. SKIN: No rashes CENTRAL NERVOUS SYSTEM: No focal deficits. EXTREMITIES: No cyanosis, clubbing or edema. Results Cardiac Enzymes 12/18/20 12/18/20 12/18/20 Range/Units 10:41 13:24 17:53 Troponin I 0.837 H* 1.170 H* 1.240 H* (0.000-0.034) ng/mL Coagulation 12/18/20 Range/Units 13:24 APTT 48.5 H (22.0-30.0) sec Current Medications Generic Name Dose Route Start Last Admin Trade Name Freq PRN Reason Stop Dose Admin Acetaminophen 1,000 mg 12/18/20 11:47 Acetaminophen Tab 500 Mg Tab PO ONCE PRN Pain Al Hydroxide/Mg Hydroxide 30 ml 12/18/20 11:47 Mag Hydrox/Al Hydrox/Simeth 30 Ml Cup PO ONCE PRN Indigestion Alprazolam 0.25 mg 12/18/20 14:23 Alprazolam 0.25 Mg Tab PO TID PRN Anxiety Aspirin 325 mg 12/19/20 09:00 Aspirin 325 Mg Tab PO DAILY VINNIE Atenolol 25 mg 12/18/20 21:00 Atenolol 25 Mg Tab PO BID VINNIE Cholecalciferol 50 mcg 12/18/20 21:00 Cholecalciferol 25 Mcg (1000 Iu) Tablet PO HS VINNIE Hydrochlorothiazide 25 mg 12/19/20 09:00 Hydrochlorothiazide 25 Mg Tab PO DAILY VINNIE Hydromorphone HCl 0.5 mg 12/18/20 14:23 Hydromorphone 0.5 Mg/0.5 Ml Syringe IVP Q6HR PRN Severe Pain Heparin Sodium/Sodium Chloride 250 mls @ 9.09 mls/hr 12/18/20 11:45 12/18/20 12:03 25,000 unit/ Sodium Chloride IV 12 units/kg/hr .Q24H VINNIE 9.09 mls/hr Administration Protocol 12 UNITS/KG/HR Levothyroxine Sodium 112 mcg 12/19/20 06:30 Levothyroxine 112 Mcg Tab PO DAILY@0630 VINNIE Lisinopril 5 mg 12/18/20 21:00 Lisinopril 5 Mg Tab PO HS VINNIE Meloxicam 15 mg 12/20/20 09:00 Meloxicam 7.5 Mg Tab PO Q48H VINNIE Niacin 500 mg 12/18/20 21:00 Niacin Tr 500 Mg Caplet PO HS VINNIE Nicotine 1 patch 12/18/20 14:30 Nicotine 14mg/24hr Patch TRANSDERM DAILY VINNIE Nitroglycerin 0.4 mg 12/18/20 11:45 Nitroglycerin Sl Tabs 0.4 Mg Tab SUBLINGUAL Q5M PRN Chest Pain Nitroglycerin 1 inch 12/18/20 12:00 12/18/20 18:21 Nitroglycerin Oint 1 Inch/Gm Packet TOPICAL Not Given Q6HR VINNIE Pantoprazole Sodium 40 mg 12/19/20 07:30 Pantoprazole 40 Mg Tablet PO AC-BRKFST VINNIE Temazepam 15 mg 12/18/20 14:23 Temazepam 15 Mg Cap PO HS PRN Insomnia Tramadol HCl 50 mg 12/18/20 12:00 12/18/20 13:03 Tramadol 50 Mg Tab PO Not Given Q6H [facility] Intake and Output 12/18/20 12/18/20 12/18/20 06:59 14:59 22:59 Other: Weight 75.75 kg Patient Weight 12/19/20 06:59 Weight 75.75 kg EKG Interpretations (text) Sinus rhythm without any acute changes Assessment and Plan (1) Essential hypertension Current Visit: Yes Status: Acute Code(s): I10 - ESSENTIAL (PRIMARY) HYPERTENSION SNOMED Code(s): 43146072 (2) NSTEMI (non-ST elevated myocardial infarction) Current Visit: Yes Status: Acute Code(s): I21.4 - NON-ST ELEVATION (NSTEMI) MYOCARDIAL INFARCTION SNOMED Code(s): 74351335 (3) Hypercholesteremia Current Visit: Yes Status: Acute Code(s): E78.00 - PURE HYPERCHOLESTEROLEMIA, UNSPECIFIED SNOMED Code(s): 51174027 Plan: We will continue current medical therapy with beta blockers, nitrates, IV heparin and aspirin. Echocardiogram. Cardiac cath in the morning
[2020-12-18] MEDS: CHOLECALCIFEROL 25 MCG (1000 IU) TABLET PO SCH (19:08)
[2020-12-18] MEDS: lisinopriL 5 MG TAB PO SCH (19:08)
[2020-12-18] MEDS: NIACIN TR 500 MG CAPLET PO SCH (19:08)
[2020-12-18] MEDS: atenoloL 25 MG TAB PO SCH (20:26)
[2020-12-19] MEDS: NITROGLYCERIN OINT 1 INCH/GM PACKET TOPICAL SCH ×2 (06:13→16:48)
[2020-12-19] MEDS: PANTOPRAZOLE 40 MG TABLET PO SCH (06:14)
[2020-12-19] MEDS: LEVOTHYROXINE 112 MCG TAB PO SCH (06:14)
[2020-12-19] MEDS: hydroCHLOROthiazide 25 MG TAB PO SCH (06:14)
[2020-12-19] MEDS: traMADol 50 MG TAB PO SCH ×3 (06:15→17:40)
[2020-12-19] MEDS ORDERED: HEPARIN SODIUM,PORCINE 10,000 UNIT in SODIUM CHLORIDE 0.9% 1,000 ML IRRIGATION PRN (07:00)
[2020-12-19] MEDS ORDERED: HEPARIN SODIUM,PORCINE 2,500 UNIT in SODIUM CHLORIDE 0.9% 250 ML IRRIGATION PRN (07:00)
--- NOTE | 2020-12-19 08:01 | ECHOF ---
Referral Reason:Chest pain, elevated troponin MEASUREMENTS -------- HEIGHT: 152.4 cm WEIGHT: 75.7 kg BP: 114/77 RVIDd: 2.8 cm (< 3.3) IVSd: 1.1 cm (0.6 - 1.1) LVIDd: 4.1 cm (3.9 - 5.3) LVPWd: 1.1 cm (0.6 - 1.1) IVSs: 1.5 cm LVIDs: 2.6 cm LVPWs: 1.6 cm LA Diam: 2.5 cm (2.7 - 3.8) Ao Diam: 2.8 cm (2.0 - 3.7) AV Cusp: 2.2 cm (1.5 - 2.6) MV EXCURSION: 6.486 mm (> 18.000) MV EF SLOPE: 19 mm/s (70 - 150) EPSS: 1.5 cm MV E Jaziel: 0.44 m/s MV DecT: 83 ms MV A Jaziel: 0.94 m/s MV E/A Ratio: 0.47 RAP: 5.00 mmHg RVSP: 23.73 mmHg FINDINGS -------- Sinus rhythm. This was a technically adequate study. The left ventricular size is normal. There is borderline concentric left ventricular hypertrophy. Overall left ventricular systolic function is normal with, an EF between 55 - 60 %. The right ventricle is normal in size. The left atrial size is normal. The right atrial size is normal. Interatrial and interventricular septum intact. There is mild aortic valve sclerosis. The mitral valve leaflets are mildly thickened. Mild mitral regurgitation is present. The tricuspid valve appears structurally normal. Mild tricuspid regurgitation present. Right vent ricular systolic pressure is normal at < 35 mmHg. Trace/mild (physiologic) pulmonic regurgitation. The aortic root size is normal. Normal inferior vena cava with normal inspiratory collapse consistent with estimated right atrial pre ssure of 5 mmHg. There is no pericardial effusion. CONCLUSIONS -------- 1. There is borderline concentric left ventricular hypertrophy. 2. Overall left ventricular systolic function is normal with, an EF between 55 - 60 %. 3. The left atrial size is normal. 4. There is mild aortic valve sclerosis. 5. Mild mitral regurgitation is present. 6. Mild tricuspid regurgitation present. 7. Trace/mild (physiologic) pulmonic regurgitation. 8. There is no pericardial effusion. [employer]CADE TECHNICIAN: Monse Barrientos RDCS
[2020-12-19] MEDS ORDERED: ASPIRIN 325 MG TAB PO SCH (09:00)
[2020-12-19] MEDS: NICOTINE 14MG/24HR PATCH TRANSDERM SCH (09:02)
[2020-12-19] MEDS: atenoloL 25 MG TAB PO SCH (09:02)
[2020-12-19 09:21] LABS: Calcium 9.4 mg/dL (8.4-10.2); Potassium 3.8 mmol/L (3.5-5.1)
[2020-12-19 10:01] LABS: Basophils % (A) 1 %; Eosinophils # (A) 0.2 k/uL (0-0.7); Eosinophils % (A) 3 %; HCT 42.1 % (34.0-46.0); HGB 14.5 gm/dL (11.4-16.0); Lymphocytes # (A) 1.8 k/uL (1.0-4.8); Lymphocytes % (A) 34 %; MCH 33.6 pg (25.0-35.0); MCHC 34.3 g/dL (31.0-37.0); MCV 97.8 fL (80.0-100.0); Mean Platelet Volume 7.6; Monocytes # (A) 0.3 k/uL (0-1.0); Monocytes % (A) 6 %; Neutrophils # (A) 2.8 k/uL (1.3-7.7); Neutrophils % (A) 55 %; Platelet Count 330 k/uL (150-450); RBC 4.31 m/uL (3.80-5.40); RDW 12.2 % (11.5-15.5); WBC 5.2 k/uL (3.8-10.6)
[2020-12-19] MEDS ORDERED: LIDOCAINE 1% INJ 10MG/ML (20 ML MDV) ONE (10:23)
[2020-12-19] MEDS ORDERED: VERAPAMIL 2.5 MG/ML 2 ML AMP ONE ×2 (10:23→11:08)
[2020-12-19] MEDS ORDERED: IV FLUID CONTINUATION 500 ML IV ONE (10:40)
[2020-12-19] MEDS ORDERED: SODIUM CHLORIDE 0.9% 1,000 ML IV ONE (10:40)
[2020-12-19] MEDS ORDERED: fentaNYL (PF) 50 MCG/ML 2 ML AMP ONE (10:44)
[2020-12-19] MEDS: fentaNYL (PF) 50 MCG/ML 2 ML AMP IV ONE ×2 (10:48→11:25)
[2020-12-19] MEDS: MIDAZOLAM 2 MG/2 ML VIAL IV ONE ×2 (10:48→11:25)
[2020-12-19] MEDS: LIDOCAINE 1% INJ 10MG/ML (20 ML MDV) SQ ONE ×2 (10:49→11:35)
[2020-12-19] MEDS: VERAPAMIL SYRINGE (5 MG/10 ML) INTRAARTER ONE ×2 (10:50→10:58)
[2020-12-19] MEDS ORDERED: NITROGLYCERIN OINT 1 INCH/GM PACKET TOPICAL ONE ×2 (10:59→11:01)
[2020-12-19] MEDS ORDERED: HEPARIN SODIUM 1,000 UN/ML (10ML VL) ONE (11:24)
[2020-12-19] MEDS ORDERED: VERAPAMIL SYRINGE (5 MG/10 ML) INTRAARTER ONE (11:27)
[2020-12-19] MEDS: NITROGLYCERIN 1000MCG/10ML SYRINGE INTRACORON ONE ×3 (11:27→11:53)
[2020-12-19] MEDS ORDERED: TICAGRELOR 90 MG TAB ONE (11:32)
[2020-12-19] MEDS ORDERED: TICAGRELOR 90 MG TAB PO ONE (11:35)
[2020-12-19] MEDS ORDERED: MIDAZOLAM 2 MG/2 ML VIAL IV ONE (11:40)
[2020-12-19] MEDS ORDERED: IOPAMIDOL-370 125ML BTL INJ ONE (11:54)
[2020-12-19] MEDS ORDERED: IOPAMIDOL-370 100ML BTL INJ ONE (12:05)
[2020-12-19] MEDS ORDERED: ATROPINE SULFATE 0.1 MG/ML 10ML SYRINGE IV PRN (12:33)
[2020-12-19] MEDS ORDERED: RX INFO: IV CONTRAST WAS GIVEN 1 EACH MISC MISCELLANE PRN (12:33)
[2020-12-19 15:02] VITALS: BMI 35.5
[2020-12-19] MEDS: SODIUM CHLORIDE 0.9% 1,000 ML IV SCH (16:47)
[2020-12-19] MEDS: HEPARIN SOD,PORK IN 0.45% NACL 25,000 UNIT in 0.45% NACL 1 250ML.BAG IV SCH (16:48)
[2020-12-19] MEDS: METOPROLOL TARTRATE 12.5 MG TAB PO SCH (19:52)
[2020-12-19] MEDS: CHOLECALCIFEROL 25 MCG (1000 IU) TABLET PO SCH (19:53)
[2020-12-19] MEDS: TICAGRELOR 90 MG TAB PO SCH (19:53)
[2020-12-19] MEDS: NIACIN TR 500 MG CAPLET PO SCH (19:53)
[2020-12-19] MEDS: lisinopriL 5 MG TAB PO SCH (19:53)
--- NOTE | 2020-12-19 23:56 | P.PRCINT ---
Percutaneous Coronary Int. - Percutaneous Coronary Intervention Percutaneous Coronary Intervention: PROCEDURES PERFORMED: Left coronary angiography, PCI of mid ramus intermedius with overlapping 3.0 x 12 and 2.5 x 8 mm Xience GEREMIAS, right femoral access, Angioseal closure INDICATION: Non-STEMI HISTORY: Patient is a pleasant 6-year-old female with history of tobacco abuse, hypertension, hypothyroidism who has been having chest pain and was found to have non-STEMI. Diagnostic heart catheterization showed obstructive ramus lesion and therefore PCI was recommended. PROCEDURE: After the risks, benefits and alternatives of the above mentioned procedure explained in detail with the patient, informed consent was obtained. Patient had already been prepped and draped in the usual fashion with a right radial sheath in place from diagnostic procedure. We attempted to use radial site however there was spasm and therefore angiogram was performed which showed high bifurcation of the radial artery around the shoulder and small caliber vessel. Therefore right femoral access was used. 1% lidocaine was used to anes thetize the right femoral area. A 6-Faroese sheath was placed in the right radial femoral area using modified Seldinger technique and ultrasound guidance. The left main was engaged with a CLS 3.5 catheter. A 0.014 BMW wire was advanced into the distal ramus. Balloon angiography was performed with a 2.5 x 8mm balloon. Next a 3.0 x 12mm Xience GEREMIAS was placed. Angiograms showed a proximal edge dissection and therefore a 2.5 x 8mm Xience GEREMIAS was placed at the proximal edge of the stent, overlapping. The wire was removed and final angiograms were performed. Preintervention there was a 95% ramus intermedius stenosis with TRISH 3 flow and post interventio there was 0% stenosis with TRISH 3 flow and no dissection. A right femoral angiogram showed adequate anatomy for closure and a 6Fr Keyla oseal was placed with hemostasis achieved. The right radial sheath was removed and a TR band was placed with hemostasis achieved. The patient tolerated the procedure well. Patient was transported back to the post catheterization holding area in stable condition. Conscious Sedation: Patient was monitored under the direct supervision of vision of myself for conscious sedation using Versed and fentanyl for a total duration of 45 minutes HEMODYNAMICS: SELECTIVE CORONARY ARTERIOGRAPHY: LEFT MAIN: The left main is a large caliber vessel which trifurcates into the LAD, ramus and circumflex. There is no significant stenosis. LEFT ANTERIOR DESCENDING CORONARY ARTERY: LAD is a large caliber vessel which wraps around to the apex. There are mild luminal irregularities. RAMUS INTERMEDIUS: The ramus is a moderate caliber vessel and has a mid ramus 95% stenosis. There is some post stenotic mild dilation. LEFT CIRCUMFLEX CORONARY ARTERY: Left circumflex is a moderate caliber vessel without significant stenosis. RIGHT CORONARY ARTERY: The right coronary artery was not imaged, see diagnostic report. FINAL IMPRESSION: 1. CAD s/p successful PCI of mid ramus intermedius with overlapping 3.0 x 12 and 2.5 x 8 mm Xience GEREMIAS 2. NSTEMI PLAN: 1. Aggressive risk factor modification per most recent ACC/AHA guidelines. 2. Dual antiplatelets for 12 months.
[2020-12-20] MEDS: traMADol 50 MG TAB PO SCH ×3 (00:28→12:19)
[2020-12-20] MEDS: SODIUM CHLORIDE 0.9% 1,000 ML IV SCH (03:41)
[2020-12-20] MEDS: PANTOPRAZOLE 40 MG TABLET PO SCH (06:25)
[2020-12-20] MEDS: LEVOTHYROXINE 112 MCG TAB PO SCH (06:26)
[2020-12-20 08:36] LABS: Basophils % (A) 1 %; Eosinophils # (A) 0.1 k/uL (0-0.7); Eosinophils % (A) 2 %; HCT 41.1 % (34.0-46.0); HGB 13.5 gm/dL (11.4-16.0); Lymphocytes # (A) 1.2 k/uL (1.0-4.8); Lymphocytes % (A) 23 %; MCH 32.6 pg (25.0-35.0); MCHC 32.7 g/dL (31.0-37.0); MCV 99.7 fL (80.0-100.0); Mean Platelet Volume 7.1; Monocytes # (A) 0.2 k/uL (0-1.0); Monocytes % (A) 4 %; Neutrophils # (A) 3.4 k/uL (1.3-7.7); Neutrophils % (A) 69 %; Platelet Count 298 k/uL (150-450); RBC 4.12 m/uL (3.80-5.40); WBC 4.9 k/uL (3.8-10.6)
[2020-12-20 08:43] LABS: Calcium 9.1 mg/dL (8.4-10.2); Potassium 3.6 mmol/L (3.5-5.1)
[2020-12-20] MEDS ORDERED: ASPIRIN 81 MG PO SCH (09:00)
[2020-12-20] MEDS ORDERED: MELOXICAM 7.5 MG TAB PO SCH (09:00)
[2020-12-20 09:13] VITALS: RESP 16; TEMP 98.3
[2020-12-20] MEDS: NICOTINE 14MG/24HR PATCH TRANSDERM SCH (09:15)
[2020-12-20] MEDS: hydroCHLOROthiazide 25 MG TAB PO SCH (09:16)
[2020-12-20] MEDS: METOPROLOL TARTRATE 12.5 MG TAB PO SCH (09:16)
[2020-12-20] MEDS: TICAGRELOR 90 MG TAB PO SCH (09:16)
[2020-12-20 12:21] VITALS: BP 114/58; PULSE 74
--- NOTE | 2020-12-20 16:34 | P.CARDCATH ---
Date of Procedure: 12/19/20 Preoperative Diagnosis: Non-STEMI Postoperative Diagnosis: Critical lesion involving the intermediate coronary artery Procedure(s) Performed: Left heart catheterization without left ventriculography Description of Procedure: HISTORY: This is a 60-year-old female who was admitted to the hospital with chest pain and positive troponin suggestive of non-STEMI. Patient is advised to have cardiac catheterization CONSENT:I have discussed the risks, benefits and alternative therapies for the above-mentioned procedure and for both sedation/analgesia as well as necessary blood product administration, if indicated, as they pertain to this patient. The patient has indicated understanding and acceptance of the risks and procedures discussed. PROCEDURE: Patient was brought to the lab in a fasting state. Patient was given some IV sedation. The right wrist is infiltrated with lidocaine and right radial artery was entered using Seldinger technique. A 6-Argentine catheter was left in place and selective coronary arteriography was performed. Patient tolerated the procedure well. Patient went on to have stent placement of the intermediate coronary artery. No immediate complications were noted. Conscious Sedation: Versed 1mg Fentanyl 25 g Duration 16 minutes HEMODYNAMICS: . The aortic pressure is about 110/70. Left ankle end-diastolic pressure is about 10-15. No gradient across the aortic valve SELECTIVE CORONARY ARTERIOGRAPHY: LEFT MAIN: Normal length and free of occlusive disease THE LEFT ANTERIOR DESCENDING CORONARY ARTERY: . This is a good caliber vessel giving rise to small caliber diagonal branch the LAD and branches are free of occlusive disease THE LEFT CIRCUMFLEX AND IS CORONARY ARTERY: . Moderate caliber vessel free of occlusive disease. The intermediate coronary artery: This is a good caliber vessel with about 95% stenosis involving the proximal portion THE RIGHT CORONARY ARTERY: . This is a good caliber vessel and dominant free of any significant focal lesions LEFT VENTRICULOGRAPHY: Not performed FINAL IMPRESSION: . The lesion involving the intermediate PLAN: Proceed with stent placement of the abdomen coronary artery PROGNOSIS: fair
--- NOTE | 2020-12-20 17:29 | P.PN ---
Subjective This is a 60-year-old female with history of smoking, hypertension and hypothyroidism, and also hypercholesterolemia who was admitted now with compla ints of recurrent chest pain. Patient underwent cardiac catheterization with Dr. Xie yesterday which revealed 95% stenosis involving the proximal intermediate coronary artery. s/p successful PCI of the mid ramus intermedius with Dr. James. Patient seen and examined at bedside, no acute distress. at bedside vital signs are stable laboratory data reviewed patient is stable for discharge home GENERAL: Well-appearing, well-nourished and in no acute distress. NECK: Supple without JVD or thyromegaly. LUNGS: Breath sounds clear to auscultation bilaterally. Respiration equal and unlabored. No wheezes, rales or rhonchi. HEART: Regular rate and rhythm without murmurs, rubs or gallops. S1 and S2 heard. EXTREMITIES: Normal range of motion, no edema. No clubbing or cyanosis. Per ipheral pulses intact. ASSESSMENT CAD status post PCI of the mid ramus intermedius on 12/19/20 History of hypertension History of nicotine dependence PLAN From cardiology perspective patient is stable for discharge home Continue dual antiplatelet therapy with aspirin 81 mg daily, Brilinta 90 mg t wice a day Continue metoprolol tartrate 12.5 mg twice a day, lisinopril 5 mg nightly, hydrochlorothiazide 25 mg daily Patient follow-up with Dr. Xie in one week Smoking cessation was discussed and highly encouraged with patient Nurse Practitioner note has been reviewed, I agree with a documented findings and plan of care. Patient was seen and examined. Objective - Vital Signs Vital signs: Vital Signs Temp 98.3 F 12/20/20 09:12 Pulse 74 12/20/20 11:30 Resp 16 12/20/20 13:47 BP 114/58 12/20/20 11:30 Pulse Ox 100 12/20/20 11:30 Intake & Output 12/19/20 12/20/20 12/20/20 18:59 06:59 18:59 Intake Total 1580 240 Balance 1580 240 Weight 82.5 kg 73.3 kg Intake: IV 600 Oral 980 240 Other: Voiding Method Toilet Toilet # Voids 2 2 1 - Labs CBC & Chem 7: 12/20/20 07:28 12/20/20 07:28 Labs: Abnormal Lab Results - Last 24 Hours (Table) 12/20/20 Range/Units 07:28 Glucose 122 H (74-99) mg/dL
--- NOTE | 2020-12-22 05:57 | DS ---
DISCHARGE SUMMARY DATE OF ADMISSION: 12/18/2020 DATE OF DISCHARGE: 12/20/2020 FINAL DIAGNOSES: 1. Acute non-ST elevation myocardial infarction. 2. Coronary artery disease with stent placement. 3. Hyperlipidemia. 4. Essential hypertension. 5. Primary osteoarthritis. 6. Hypothyroid. 7. Chronic nicotine dependence, cigarette smoker. HOSPITAL COURSE: This patient presented with acute non-Q-wave myocardial infarction. Underwent cardiac catheterization. Ramus intermedius stent was placed. 2D echocardiogram showed the EF of 55-60%. Today: Sitting up. Comfortable. No chest pain. PHYSICAL EXAMINATION: On examination, temperature 98.3, pulse 74, respirations 16, blood pressure 114/58, pulse ox 100% on room air. LUNGS: Decreased breath sounds. CARDIOVASCULAR: 1st and 2nd sounds normal. PSYCH: AO x3. Mood and affect normal. INVESTIGATIONS: White count 4.9, hemoglobin 13.5, platelets 298. Potassium 3.6, creatinine 0.87, LDL 126. Influenza type A, type B, RSV PCR, COVID-19 PCR: Not detected. Troponin I 0.837, 1.1, 1.2. CONSULTATIONS: [facility] HOME GO MEDICATIONS: 1. Synthroid 112 mcg a day. 2. Lisinopril 5 mg q.h.s. 3. Hydrochlorothiazide 25 mg a day. 4. Ultram 50 mg q.6h. 5. Vitamin D3 50 mcg p.o. q.h.s. 6. Mylanta p.r.n. 7. Niacin 500 mg p.o. q.h.s. 8. Aspirin 81 mg p.o. daily. 9. Lopressor 12.5 p.o. b.i.d. 10.Nicotine patch 14. 11.Nitroglycerin 0.4 sublingual p.r.n. 12.Brilinta 90 mg p.o. b.i.d. FOLLOWUP: Follow up with Dr. Monae on 12/26/2020. Follow up with Dr. Xie in 1 week. MMTANL / MIHAELAN: [id number] /
== END 2020-12-20 16:10 | disposition home or self-care (01) | DRG 246 ==
LOC: EC 10:11 → 3SCARD 11:45
PROVIDERS: ADMIT Hospitalist; ATTEND Hospitalist
PROC: 4A023N7 Measurement of Cardiac Sampling and Pressure, Left Heart, Percutaneous Approach (ICD-10-PCS; 2020-12-19)
PROC: 027035Z Dilation of Coronary Artery, One Artery with Two Drug-eluting Intraluminal Devices, Percutaneous Approach (ICD-10-PCS; principal; 2020-12-19 07:30)
PROC: B2111ZZ Fluoroscopy of Multiple Coronary Arteries using Low Osmolar Contrast (ICD-10-PCS; 2020-12-19 07:30)
DX: I21.4 Non-ST elevation (NSTEMI) myocardial infarction (principal); I25.42 Coronary artery dissection; I25.110 Atherosclerotic heart disease of native coronary artery with unstable angina pectoris; I10 Essential (primary) hypertension; E66.9 Obesity, unspecified; M19.90 Unspecified osteoarthritis, unspecified site; E89.0 Postprocedural hypothyroidism; Z79.890 Hormone replacement therapy; F17.200 Nicotine dependence, unspecified, uncomplicated; Z20.822 Contact with and (suspected) exposure to COVID-19; Z80.0 Family history of malignant neoplasm of digestive organs; G89.29 Other chronic pain; E78.00 Pure hypercholesterolemia, unspecified; Z79.899 Other long term (current) drug therapy
CPT/HCPCS: 36415; 80048; 80061; 84484; 85025; 85347; 85730; 87636; 93005; 93306; 93454; 99285

== ENCOUNTER → 2023-07-09 | Outpatient (CLI) | payer OTHER ==
[2023-07-09 12:54] VITALS: BP 145/83; PULSE 78; RESP 15; TEMP 98.5
--- NOTE | 2023-07-09 14:45 | P.PAINPG ---
PQRS Measure Charge Sheet Comment: HISTORY OF PRESENT ILLNESS: A 62 yr old female w at [facility] as a referral from Dr Harmon presents today w severe and chronic neck pain x 5 mo secondary to DDD, spondylosis and facet arthropathy without myelopathy for evaluation. Pt states pain level is provoked at 8/10 in intensity, constant, localized in the mid to lower cervical spine, predominantly axial, tingling in character w shooting pain occasionally towards the R shoulder and RUE. Pain is provoked by lifting. Pain is alleviated by physician guided home stretches/ exercises 5 times weekly once coming home from work since 2019, heat, ice, medications (Mobic), repositioning and rest. Oswestry axial pain score at 24. PMH: OA, Hyperlipidemia, HTN, Hypothy, roid Disorder, Vitamin D Deficiency PSH: ACDF C5-C6 (2019), Thyroidectomy, BL Carpal Tunnel, Section, Tonsillectomy, Tubal Ligation SH: Daily tobacco use, No ETOH use, No illicit drug use. . 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 Sis- Stomach CA. Fa- Dementia All: See list Meds: See list REVIEW OF ORGAN SYSTEMS: CONSTITUTIONAL: No fevers or chills. No recent weight loss. NEUROLOGICAL: + numbness and tingling along the distal extremities. No seizure disorders or headaches. MUSCULOSKELETAL: + pain PSYCHIATRIC: Denies current depression or suicidal thoughts. Physical Examinations : Constitutional : Cooperative , not in acute distress . Neurologic : Cranial nerve II to XII intact. No focal neurological deficits. Psychiatric : alert & oriented x 3. Matching mood & appropriate affect. Judgment & insight intact. Musculoskeletal : Cervical Spine Motor strength in the deltoid and biceps: Normal right side. Normal Left side Motor strength biceps and the wrist extensors: Normal right side . Normal left side Motor strength in the triceps muscle: Normal right side. Normal left side Deep tendon reflexes: Normal at the biceps. Normal at Brachioradialis. Normal at triceps Vertebral body tenderness to deep palpation over Cervical facet loading test: positive BL over C3-C4, C4-C5 Spurling test: positive bilaterally Neck distraction test: positive bilaterally Desiree sign: positive bilaterally Lumbar spine Motor strength lower extremities ,thigh and legs 5/5 Right side , 5/5 Left side Deep tendon reflexes : Normal Knee Jerk. Normal Ankle Jerk Vertebral body tenderness over Humphries Test positive Lumbar facet Loading Test: positive Right / positive Left Range of motion of the lumbar spine Flexion 30 degrees, extension 10 degrees Straight Leg Raise test: Left/ Right positive at degree Marian test: positive right / positive left. Severe tenderness over the Sacroiliac joint on the Right / Left sides Gaenslen test: positive bilaterally Seated flexion test: positive bilaterally. Sacral spine : Severe tenderness over the Sacroiliac joint: right side / left side Range of motion: Flexion of the lumbar spine <60 degrees Range of motion: Extension of the lumbar spine <20 degrees Gaenslen's Test positive Marian test: positive right side / left side Thigh Thrust Test Sacral Thrust Test Imaging: MRI noncontrast of the cervical spine from 06/01/23 reviewed Assessment/ Plan : Cervical post laminectomy syndrome Recommendation of BL MBB C3-C4, C4-C5 #1. May need a series of injections, up until RFA, for optimal pain relief. Risks, benefits of procedure discussed and patient verbalized understanding. Admits to anti- coagulant use or medical history of diabetes. Protocol for discontinuation/ continuation of medications maggy procedure discussed. Minimal anesthesia provided, if clinically indicated, consisting of Versed and Fentanyl. [place] 10/325mg #90 w 1 RF. Use, side effects, adverse reactions and safe storage discussed. Opiate/ narcotic agreement signed 07/09/23. 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 All questions answered. I have spent greater than 30 minutes on patient care today. Dr Guerrero was available by phone for the evaluation of this patient. The time was used to review the medical records including relevant urine studies and Prescription history (MAPs), review of the available imaging, evaluation and examination of the patient, coordination of care with the medical staff and if applicable referring physicians, as well as creation of the medical record PQRS Narrative: Smoking Status Current every day smoker Hx Alcohol Use (MH) No Home Medications: Ambulatory Orders Levothyroxine Sodium [Synthroid] 112 mcg PO DAILY 06/27/14 lisinopriL [Lisinopril] 5 mg PO HS 06/27/14 hydroCHLOROthiazide [Hydrodiuril] 25 mg PO DAILY 08/11/14 traMADol HCL [Ultram] 50 mg PO Q6H 09/17/19 Cholecalciferol [Vitamin D3 (25 Mcg = 1000 Iu)] 50 mcg PO HS 12/18/20 Mag Hydrox/Aluminum Hyd/Simeth [Mylanta Maximum Strength Liq] 30 ml PO ONCE PRN 12/18/20 Niacin 500 mg PO HS 12/18/20 Aspirin 81 mg PO DAILY #0 chew 12/20/20 Metoprolol Tartrate [Lopressor] 12.5 mg PO BID 30 Days #60 tab 12/20/20 Nicotine 14Mg/24Hr Patch [Habitrol] 1 patch TRANSDERM DAILY #14 patch 12/20/20 Nitroglycerin Sl Tabs [Nitrostat] 0.4 mg SUBLINGUAL Q5M PRN #30 tab 12/20/20 Ticagrelor [Brilinta] 90 mg PO BID 30 Days #60 tab 12/20/20 Controlled Substance Measures - Controlled Substance Measures Is patient prescribed a controlled substance at discharge?: Yes When asked, does pt state using other controlled substances?: No If prescribed controlled substance>3 days was MAPS reviewed?: Yes If Rx opioid, was Start Talking consent form obtained?: Yes Was information provided regarding opioid addiction?: Yes
== END ==
LOC: PNWHC3 10:15
PROVIDERS: ATTEND Anesthesiology
DX: M54.2 Cervicalgia (principal); M96.1 Postlaminectomy syndrome, not elsewhere classified; M19.90 Unspecified osteoarthritis, unspecified site; E78.5 Hyperlipidemia, unspecified; I10 Essential (primary) hypertension; E03.9 Hypothyroidism, unspecified; F17.200 Nicotine dependence, unspecified, uncomplicated; Z79.890 Hormone replacement therapy; Z79.899 Other long term (current) drug therapy; Z79.82 Long term (current) use of aspirin; Z88.0 Allergy status to penicillin; Z88.8 Allergy status to other drugs, medicaments and biological substances
CPT/HCPCS: 99211

== ENCOUNTER → 2023-08-22 | Day surgery (SDC) | payer OTHER ==
[~2023-08-22] MED LIST changes: -DEXAMETHASONE SOD PHOSPHATE 10 MG/ML 1 ML VIAL ONE; -IOPAMIDOL M200 10 ML VIAL ONE; +LACTATED RINGERS 1,000 ML IV ONE; +LACTATED RINGERS 1,000 ML IV SCH; +LIDOCAINE 1% (10MG/ML) FOR IV START INTRADERMA ONE; +ROPIVACAINE 5MG/ML 20ML VIAL ONE; +methylPREDNISolone ACETATE 40 MG/ML 1 ML VIAL ONE
[2023-08-22 06:59] VITALS: TEMP 97.5
--- NOTE | 2023-08-22 07:26 | P.PCN ---
Date of Procedure: 08/22/23 Procedure(s) Performed: PREOPERATIVE DIAGNOSIS: 1-Cervical Spondylosis with Facet Arthropathy.without myelopathy. 2-cervical degenerative disc disease POSTOPERATIVE DIAGNOSIS:1-cervical spondylosis with facet arthropathy without myelopathy. 2-cervical degenerative disc disease PROCEDURES: Diagnostic bilateral C3, C4 , C5 , medial branch blocks, with fluoroscopic guidance (fluoroscopy images available in radiology department ) ( to target the facet joint at bilateral C3-4 , C4- 5 )# 1st ANESTHESIA: Monitored anesthesia care as per anesthesia department . EBL: Minimal PROCEDURE INDICATION: The patient with neck pain secondary to cervical arthropathy unresponsive to more conservative treatments. PROCEDURE DESCRIPTION / TECHNIQUE: The patient was seen and identified in the preoperative area. Risks, benefits, complications, and alternatives were discussed with the patient, the patient agreed to proceed with the procedure and signed the consent. IV was started. Vital signs remained stable throughout the procedure. Patient was taken to the OR and time out was completed. The patient was placed in the lateral position ( right side up )on the procedure table.. The cervical area was prepped and draped in the usual sterile fashion. Critical pause was taken. Vital signs were closely monitored during the procedure. Conscious sedation was used during the procedure to decrease patients anxiety. Using cross-table lateral fluoroscopy, the centroid of the trapezoid of right C3, C4 , C5 , was identified, marked, and localized with 1% lidocaine 1 ml at each level for skin and Sub Q infiltrations . Subsequently, a 22 G 3 spinal needle was advanced guided by fluoroscopy to the centroid of the trapezoid of Right C3, C4 , C5. Sparks tip position was confirmed at the centroid of the trapezoids of Right C3 , C4 , C5 with anteroposterior fluoroscopy. Subsequently, 2 ml of preservative-free Ropivacaine 0.5% mixed with Depo- Medrol 20 mg and half ml of the mixture was injected after negative aspiration for blood and CSF. Sparks was then removed intact the same procedure was repeated at the left C3 , C4 , C5 ,levels. COMPLICATIONS: No acute complications. COMMENTS:when the patient positioned in prone position we were not able to visualize the C5 vertebral DISPOSITION / PLANS: The patient was placed in a supine position and transferred to the recovery area in a stable condition for observation and was discharged from the recovery room after meeting discharge criteria. Home discharge instructions given to the patient by the staff. The patient was reexamined prior to discharge. The patient will schedule a follow up in the clinic in 2-4 weeks.
[2023-08-22 07:49] VITALS: BP 110/57; PULSE 71; RESP 14
--- NOTE | 2023-08-22 08:54 | FL ---
EXAMINATION TYPE: FL guided pain mgmt statistic DATE OF EXAM: 08/22/2023 FLUOROSCOPY Fluoroscopy time of 22 seconds was used during cervical spine pain management procedure. 4 image/s d ocument/s the procedure. [id number]
== END ==
LOC: ORPAIN 06:10
PROVIDERS: ATTEND Specialist
DX: M50.322 Other cervical disc degeneration at C5-C6 level (principal); M47.812 Spondylosis without myelopathy or radiculopathy, cervical region; I25.10 Atherosclerotic heart disease of native coronary artery without angina pectoris; I10 Essential (primary) hypertension; E78.5 Hyperlipidemia, unspecified; E03.9 Hypothyroidism, unspecified; M19.90 Unspecified osteoarthritis, unspecified site; Z98.891 History of uterine scar from previous surgery; Z79.890 Hormone replacement therapy; Z88.0 Allergy status to penicillin; Z88.5 Allergy status to narcotic agent; Z79.899 Other long term (current) drug therapy; Z79.82 Long term (current) use of aspirin
CPT/HCPCS: 64491 ×2; 64490; 99152; J2250; J1030; J3010; J2795

== ENCOUNTER → 2023-09-01 | Outpatient (CLI) | payer OTHER ==
[2023-09-01 09:57] VITALS: BP 131/85; PULSE 88; RESP 16; TEMP 97.3
--- NOTE | 2023-09-01 13:59 | P.PAINPG ---
PQRS Measure Charge Sheet Comment: HISTORY OF PRESENT ILLNESS: A 62 yr old female w at side as a referral from Dr Harmon presents today w severe and chronic neck pain x 5 mo secondary to ACDF C5-C6 post laminectomy syndrome for evaluation s/p BL MBB C3-C5 #1. Pt states she experienced 0% pain relief s/p procedure. Pt states pain level is provoked at 6/10 in intensity, constant, localized in the R cervical spine, predominantly axial, tingling in character w shooting pain occasionally towards the R shoulder and RUE. Pain is provoked by lifting. Pain is alleviated by physician guided home stretches/ exercises 5 times weekly once coming home from work since 2019, heat, ice, medications, repositioning and rest. Cervical disability score at 24. Interventional procedures include Multiple CESIs which were ineffective, ACDF C5-C6, BL MBB C3-C5 x1 Medications include [place], Tyl Arthritis, Ibu REVIEW OF ORGAN SYSTEMS: CONSTITUTIONAL: No fevers or chills. No recent weight loss. NEUROLOGICAL: + numbness and tingling along the distal extremities. No seizure disorders or headaches. MUSCULOSKELETAL: + pain PSYCHIATRIC: Denies current depression or suicidal thoughts. Physical Examinations : Constitutional : Cooperative , not in acute distress . Neurologic : Cranial nerve II to XII intact. No focal neurological deficits. Psychiatric : alert & oriented x 3. Matching mood & appropriate affect. Judgment & insight intact. Musculoskeletal : Cervical Spine Motor strength in the deltoid and biceps: Normal right side. Normal Left side Motor strength biceps and the wrist extensors: Normal right side . Normal left side Motor strength in the triceps muscle: Normal right side. Normal left side Deep tendon reflexes: Normal at the biceps. Normal at Brachioradialis. Normal at triceps Vertebral body tenderness to deep palpation over Cervical facet loading test: positive BL over C3-C4, C4-C5 Spurling test: positive bilaterally Neck distraction test: positive bilaterally Desiree sign: positive bilaterally Lumbar spine Motor strength lower extremities ,thigh and legs 5/5 Right side , 5/5 Left side Deep tendon reflexes : Normal Knee Jerk. Normal Ankle Jerk Vertebral body tenderness over Humphries Test positive Lumbar facet Loading Test: positive Right / positive Left Range of motion of the lumbar spine Flexion 30 degrees, extension 10 degrees Straight Leg Raise test: Left/ Right positive at degree Marian test: positive right / positive left. Severe tenderness over the Sacroiliac joint on the Right / Left sides Gaenslen test: positive bilaterally Seated flexion test: positive bilaterally. Sacral spine : Severe tenderness over the Sacroiliac joint: right side / left side Range of motion: Flexion of the lumbar spine <60 degrees Range of motion: Extension of the lumbar spine <20 degrees Gaenslen's Test positive Marian test: positive right side / left side Thigh Thrust Test Sacral Thrust Test Imaging: MRI noncontrast of the cervical spine from 06/01/23 reviewed Assessment/ Plan : Cervical post laminectomy syndrome Recommendation of medication management. Discussed additional treatment options including follow up w Dr Harmon or consideration of SCS w Dr Pressley. Flexeril 10mg HS #30, [place] 10/325mg #90 w 1 RF. Use, side effects, adverse reactions and safe storage discussed. UDS collected 09/01/23. Opiate/ narcotic agreement signed 07/09/23. All questions answered. I have spent greater than 30 minutes on patient care today. Dr Guerrero was available by phone for the evaluation of this patient. The time was used to review the medical records including relevant urine studies and Prescription history (MAPs), review of the available imaging, evaluation and examination of the patient, coordination of care with the medical staff and if applicable referring physicians, as well as creation of the medical record PQRS Narrative: Smoking Status Current every day smoker Hx Alcohol Use (MH) No Home Medications: Ambulatory Orders Levothyroxine Sodium [Synthroid] 112 mcg PO DAILY 06/27/14 lisinopriL [Lisinopril] 5 mg PO HS 06/27/14 hydroCHLOROthiazide [Hydrodiuril] 25 mg PO DAILY 08/11/14 Cholecalciferol [Vitamin D3 (25 Mcg = 1000 Iu)] 50 mcg PO MO 12/18/20 Aspirin 81 mg PO DAILY #0 chew 12/20/20 Metoprolol Tartrate [Lopressor] 12.5 mg PO BID 30 Days #60 tab 12/20/20 Nitroglycerin Sl Tabs [Nitrostat] 0.4 mg SUBLINGUAL Q5M PRN #30 tab 12/20/20 Ticagrelor [Brilinta] 90 mg PO BID 30 Days #60 tab 12/20/20 Omeprzole(Unk) 1 tab PO BID 08/19/23 Cyclobenzaprine [Flexeril] 10 mg PO HS 30 Days #30 tab 09/01/23 HYDROcodone/APAP 10-325MG [[place] 10-325] 1 tab PO TID PRN 30 Days #90 tab 09/01/23 HYDROcodone/APAP 10-325MG [[place] 10-325] 1 tab PO TID PRN 30 Days #90 tab 09/01/23 Controlled Substance Measures - Controlled Substance Measures Is patient prescribed a controlled substance at discharge?: Yes When asked, does pt state using other controlled substances?: No If prescribed controlled substance>3 days was MAPS reviewed?: Yes
== END ==
LOC: PNWHC3 09:16
PROVIDERS: ATTEND Specialist
DX: M96.1 Postlaminectomy syndrome, not elsewhere classified (principal); F17.200 Nicotine dependence, unspecified, uncomplicated; Z88.3 Allergy status to other anti-infective agents; Z88.0 Allergy status to penicillin; Z79.82 Long term (current) use of aspirin
CPT/HCPCS: 80307; 99212

== ENCOUNTER → 2023-10-01 | Outpatient (CLI) | payer OTHER ==
--- NOTE | 2023-10-01 10:59 | XR ---
EXAMINATION TYPE: XR chest 2V DATE OF EXAM: 10/01/2023 10:45 AM CLINICAL INDICATION:Female, 63 years old with history of M48.02 CERVICAL STENOSIS; PHH COMPARISON: Chest radiographs from 11/12/2019 TECHNIQUE: XR chest 2V Frontal and lateral views of the chest. FINDINGS: Lungs/Pleura: There is no evidence of pleural effusion, focal consolidation, or pneumothorax. Pulmonary vascularity: Unremarkable. Heart/mediastinum: Cardiomediastinal silhouette is unremarkable. Musculoskeletal: No acute osseous pathology. There is fixation hardware in the lower cervical spine. Other findings: None IMPRESSION: No acute cardiopulmonary disease/process.
[2023-10-01 11:08] LABS: INR 0.9 (<1.2); Prothrombin Time 10.1 sec (10.0-12.5)
[2023-10-01 11:09] LABS: Partial Thromboplastin Time 23.1 sec (22.0-30.0)
[2023-10-01 15:45] LABS: Basophils # (A) 0.02 X 10*3/uL (0.00-0.10); Basophils % (A) 0.4 %; Eosinophils # (A) 0.11 X 10*3/uL (0.04-0.35); Eosinophils % (A) 2.3 %; HCT 40.4 % (37.2-46.3); HGB 13.9 g/dL (12.0-15.0); Lymphocytes # (A) 1.35 X 10*3/uL (0.90-5.00); Lymphocytes % (A) 28.7 %; MCH 32.7 pg (27.0-32.0); MCHC 34.4 g/dL (32.0-37.0); MCV 95.1 FL (80.0-97.0); Mean Platelet Volume 9.8 FL (9.5-12.2); Monocytes # (A) 0.43 X 10*3/uL (0.20-1.00); Monocytes % (A) 9.1 %; NRBC Per 100 WBC 0 X 10*3/uL (0.00-0.01); Neutrophils # (A) 2.79 X 10*3/uL (1.80-7.70); Neutrophils % (A) 59.3 %; Platelet Count 354 X 10*3/uL (140-440); RBC 4.25 X 10*6/uL (4.10-5.20); RDW 12.5 % (11.5-14.5); WBC 4.71 X 10*3/uL (4.50-10.00)
[2023-10-01 16:13] LABS: BUN/Creat Ratio 21.38 Ratio (12.00-20.00); Blood Urea Nitrogen 17.1 mg/dL (9.0-27.0); Calcium 10.1 mg/dL (8.7-10.3); Carbon Dioxide 27.5 mmol/L (21.6-31.8); Chloride 97 mmol/L (96-109); Glucose 106 mg/dL (70-110); Potassium 3.8 mmol/L (3.5-5.5); Sodium 139 mmol/L (135-145)
[2023-10-01 16:39] LABS: Appearance,Urine Clear (Clear); Bilirubin,Urine Negative (Negative); Blood,Urine Negative (Negative); Color,Urine Yellow (Yellow); Ketones,Urine Negative (Negative); Nitrite,Urine Negative (Negative); Urobilinogen,Urine 0.2 E.U./DL
[2023-10-01 16:56] LABS: Bacteria,Urine None Seen (None Seen)
== END | disposition home or self-care (01) ==
LOC: LABPAT 09:43
PROVIDERS: ATTEND Orthopaedic Surgery Orthopaedic Surgery of the Spine
DX: Z01.818 Encounter for other preprocedural examination (principal); M48.02 Spinal stenosis, cervical region; R00.0 Tachycardia, unspecified; Z22.322 Carrier or suspected carrier of Methicillin resistant Staphylococcus aureus
CPT/HCPCS: 71046; 80048; 81001; 85025; 85610; 85730; 87070; 93005

== ENCOUNTER → 2023-10-22 | Outpatient (CLI) | payer OTHER ==
--- NOTE | 2023-10-22 11:31 | CA ---
Exercise Stress Test Report Name: Heather Cash Exam Date: 10/22/2023 08:53 Exam Location: [place] Stress Ht (in): Wt (lb): BSA: Ordering Phys: Dionicio Monae DO Referring Phys: Dionicio Monae DO Technologist: PM Age: 63 Gender: F : 1960 Procedure CPT: Indications: I25.119 coronary atherosclerosis ICD-10 Codes: Patient History: History of ASCAD and pre surgery Medications: Meds past 24 hrs: Pretest Chest Pain: STRESS TEST [place] Protocol Exercise Duration (min:sec): 04:[address] Depressions (mm): Angina Score: Cordero Score: Resting HR (bpm): 111 Peak HR (bpm): 168 Resting BP (mmHg): 142 / 87 Peak BP (mmHg): 216 / 81 MPHR: 157 Target HR: 133 % MPHR: 107 METS: 6.5 Total Dose: Peak Dose: Atropine: Double Product: 40468 BP Response: Stress Termination: Reached target heart rate Stress Symptoms: No chest pain or symptoms Stress Summary: ECG ANALYSIS Resting ECG: Normal sinus rhythm normal axis normal intervals and doesn't Stress ECG: Patient exercised on [place] protocol for 4 minutes achieving 85% of predicted maximal heart rate without chest pain or diagnostic ST segment depression CONCLUSIONS poor exercise tolerance Negative stress test by EKG criteria Dr. Sven Ruiz MD (Electronically Signed) Final Date: 22 October 2023 11:30
== END | disposition home or self-care (01) ==
LOC: RADNMMAIN 08:28
PROVIDERS: ATTEND Family Medicine
DX: Z01.818 Encounter for other preprocedural examination (principal); I25.119 Atherosclerotic heart disease of native coronary artery with unspecified angina pectoris; M48.02 Spinal stenosis, cervical region; Z22.322 Carrier or suspected carrier of Methicillin resistant Staphylococcus aureus
CPT/HCPCS: 86850; 86900; 86901; 93017

== ENCOUNTER → 2023-10-24 | Outpatient (CLI) | payer OTHER ==
--- NOTE | 2023-10-24 17:24 | CA ---
Transthoracic Echo Report Name: Heather Cash Age: 63 Gender: F : 1960 Exam Date: 10/24/2023 11:25 Exam Location: [place] Echo Ht (in): 60 Wt (lb): 170 Ordering Physician: Dionicio Monae DO Attending/Referring Phys: Dionicio Monae DO Insulation Blower Ritchie Lopez RDCS Procedure CPT: Indications: I25.119 ATHEROSC HEART DISEASE Cardiac Hx: Technical Quality: Contrast 1: Total Dose (mL): Contrast 2: Total Dose (mL): MEASUREMENTS (Male / Female) Normal Values 2D ECHO LV Diastolic Diameter PLAX 3.7 cm 4.2 - 5.9 / 3.9 - 5.3 cm LV Systolic Diameter PLAX 2.7 cm IVS Diastolic Thickness 0.9 cm 0.6 - 1.0 / 0.6 - 0.9 cm LVPW Diastolic Thickness 0.8 cm 0.6 - 1.0 / 0.6 - 0.9 cm LV Relative Wall Thickness 0.5 LVOT Diameter 1.8 cm Aortic Root Diameter 3.3 cm LA Systolic Diameter LX 3.2 cm 3.0 - 4.0 / 2.7 - 3.8 cm LV Diastolic Volume MOD BP 40.1 cm??? 67 - 155 / 56 - 104 cm??? LV Systolic Volume MOD BP 10.3 cm??? 22 - 58 / 19 - 49 cm??? LV Ejection Fraction MOD BP 74.3 % >= 55 % LV Cardiac Index MOD BP 1504.4 cm???/min???m??? LV Diastolic Volume MOD 4C 51.7 cm??? LV Systolic Volume MOD 4C 9.9 cm??? LV Ejection Fraction MOD 4C 80.8 % LV Cardiac Index MOD 4C 2107.1 cm???/min???m??? LV Diastolic Length 4C 6.6 cm LV Systolic Length 4C 4.9 cm LV Diastolic Volume MOD 2C 28.5 cm??? LV Systolic Volume MOD 2C 10.4 cm??? LV Ejection Fraction MOD 2C 63.5 % LV Cardiac Index MOD 2C 913.8 cm???/min???m??? LV Diastolic Length 2C 6.0 cm LV Systolic Length 2C 4.7 cm DOPPLER AV Peak Velocity 168.1 cm/s AV Peak Gradient 11.3 mmHg AV Mean Velocity 118.8 cm/s AV Mean Gradient 6.2 mmHg AV Velocity Time Integral 30.1 cm LVOT Peak Velocity 111.4 cm/s LVOT Peak Gradient 5.0 mmHg LVOT Velocity Time Integral 20.5 cm LVOT Stroke Volume 53.6 cm??? LVOT Stroke Volume Index 30.8 ml/m??? LVOT Cardiac Index 2706.0 cm???/min???m??? AV Area Cont Eq vti 1.8 cm??? AV Area Cont Eq pk 1.7 cm??? Mitral E Point Velocity 64.6 cm/s Mitral A Point Velocity 82.2 cm/s Mitral E to A Ratio 0.8 MV Deceleration Time 207.9 ms MV E' Velocity 10.5 cm/s Mitral E to MV E' Ratio 6.1 TR Peak Velocity 190.9 cm/s TR Peak Gradient 14.6 mmHg PV Peak Velocity 89.4 cm/s PV Peak Gradient 3.2 mmHg FINDINGS Left Ventricle Left ventricular ejection fraction is estimated at 55-60%. Normal left ventricular wall motion. Left ventricular cavity size normal. Right Ventricle Normal right ventricular size and function. Right ventricular systolic pressure within normal limits. Right Atrium Normal right atrial size. Left Atrium Normal left atrial size. Mitral Valve Mild mitral regurgitation. Aortic Valve Trileaflet aortic valve. Tricuspid Valve Mild tricuspid regurgitation. Pulmonic Valve Trace to mild pulmonic regurgitation. Pericardium No pericardial effusion. Aorta Normal size aortic root and proximal ascending aorta. CONCLUSIONS Normal LV systolic function Mild mitral regurgitation Previewed by: Dr. Sven Ruiz MD (Electronically Signed) Final Date: 24 October 2023 17:23
== END | disposition home or self-care (01) ==
LOC: RADECHMAIN 11:17
PROVIDERS: ATTEND Family Medicine
DX: I34.0 Nonrheumatic mitral (valve) insufficiency (principal); I25.119 Atherosclerotic heart disease of native coronary artery with unspecified angina pectoris
CPT/HCPCS: 93306

== ENCOUNTER 2023-10-29 05:38 | Inpatient (IN) | payer OTHER ==
[2023-10-29] MEDS: LACTATED RINGERS 1,000 ML IV ONE ×2 (06:33→06:54)
[2023-10-29] MEDS: ONDANSETRON 4 MG/2 ML VIAL IVP ONE (06:34)
[2023-10-29] MEDS: LIDOCAINE 1% (10MG/ML) FOR IV START INTRADERMA PRN (06:34)
[2023-10-29] MEDS: MIDAZOLAM 2 MG/2 ML VIAL IVP ONE (06:54)
[2023-10-29] MEDS ORDERED: MIDAZOLAM 2 MG/2 ML VIAL ONE (07:24)
[2023-10-29] MEDS ORDERED: NEOSTIGMINE 1 MG/ML 10 ML VIAL ONE (07:24)
[2023-10-29] MEDS ORDERED: LIDOCAINE 1% INJ 10MG/ML (20 ML MDV) ONE (07:24)
[2023-10-29] MEDS ORDERED: fentaNYL (PF) 50 MCG/ML 2 ML AMP ONE (07:24)
[2023-10-29] MEDS ORDERED: SUCCINYLCHOLINE CHLORIDE 200 MG/10 ML VIAL IV ONE (07:24)
[2023-10-29] MEDS ORDERED: HYDROmorphone (PF) 1 MG/ML ONE (07:24)
[2023-10-29] MEDS ORDERED: ESMOLOL 100 MG/10 ML VIAL ONE (07:24)
[2023-10-29] MEDS ORDERED: PROPOFOL 10 MG/ML 20 ML VIAL IV ONE (07:24)
[2023-10-29] MEDS ORDERED: ROCURONIUM 10 MG/ML (5 ML VIAL) IV ONE (07:24)
[2023-10-29] MEDS ORDERED: GLYCOPYRROLATE 0.2 MG/ML 2 ML VIAL ONE (07:24)
[2023-10-29] MEDS: GELATIN SPONGE,ABSORB (LARGE) 1 EACH SPONGE TOPICAL ONE (07:29)
[2023-10-29] MEDS: LIDOCAINE 1%-EPI 1:100,000 50 ML VIAL SQ ONE (07:29)
[2023-10-29] MEDS: THROMBIN (BOVINE) 5,000 UNIT VIAL TOPICAL ONE (07:29)
[2023-10-29] MEDS: ceFAZolin 1,000 MG in SODIUM CHLORIDE 0.9% IRRIGATIO 1,000 ML IRRIGATION PRN (08:13)
--- NOTE | 2023-10-29 08:41 | XR ---
EXAMINATION TYPE: XR cervical spine 1V DATE OF EXAM: 10/29/2023 CLINICAL HISTORY: pain TECHNIQUE: Crosstable lateral localization view of the cervical spine COMPARISON: None. FINDINGS: Anterior cervical localization device is noted at the C4-5 disc space level. IMPRESSION: As above
[2023-10-29] MEDS ORDERED: HYDROcodone/APAP 5-325MG 1 EACH TAB PO PRN (09:42)
[2023-10-29] MEDS ORDERED: diazePAM 5 MG TAB PO PRN (09:42)
[2023-10-29] MEDS ORDERED: CYCLOBENZAPRINE 10 MG TAB PO PRN (09:43)
[2023-10-29] MEDS ORDERED: ONDANSETRON 4 MG/2 ML VIAL IVP PRN (09:43)
[2023-10-29] MEDS ORDERED: NITROGLYCERIN SL TABS 0.4 MG TAB SUBLINGUAL PRN (09:45)
[2023-10-29] MEDS ORDERED: NON FORMULARY DRUG (Acetaminophen [Tylenol Arthritis] 650 MG Tablet) PO PRN (09:45)
[2023-10-29] MEDS ORDERED: HYDROcodone/APAP 10-325MG 1 EACH TAB PO PRN (09:45)
--- NOTE | 2023-10-29 09:51 | XR ---
EXAMINATION TYPE: XR cervical spine 1V DATE OF EXAM: 10/29/2023 CLINICAL HISTORY: HARDWARE PLACEMENT TECHNIQUE: Crosstable lateral view of the cervical spine COMPARISON: None. FINDINGS: Postoperative changes of ACDF at C3-4 and C4-5. Anterior fixation plate is in place. Postop erative alignment is within normal limits. IMPRESSION: As above
--- NOTE | 2023-10-29 09:59 | P.OP ---
Date of Procedure: 10/29/23 Preoperative Diagnosis: Cervical stenosis C3-4 C4-5, herniated nucleus pulposus C3-4 C4-5, neck pain, upper extremity radiculopathy, history of prior anterior cervical fusion see 5 6 with retained hardware, degenerative disc disease Postoperative Diagnosis: Same Anesthesia: GETA Pathology: none sent Condition: stable Disposition: PACU Description of Procedure: BRIEF OPERATIVE NOTE Preoperative Diagnosis:Cervical stenosis C3-4 C4-5, herniated nucleus pulposus C3-4 C4-5, neck pain, upper extremity radiculopathy, history of prior anterior cervical fusion see 5 6 with retained hardware, degenerative disc disease Postoperative Diagnosis:Cervical stenosis C3-4 C4-5, herniated nucleus pulposus C3-4 C4-5, neck pain, upper extremity radiculopathy, history of prior anterior cervical fusion see 5 6 with retained hardware, degenerative disc disease Procedure: Removal of anterior cervical plate and screws C5-6 Evaluation of fusion with findings of solid fusion C5-6 anterior cervical decompression with discectomy and fusion C3-4 C4-5 Placement of interbody graft C3-4 C4-5 Application of anterior cervical plate C3-4 and 5 Surgeon: Dr. Harmon Hair Boiler: Neal BROWN who is present throughout the entire the case persistence during positioning, dissection, exposure, visualization, and all crucial elements of the case as well as closure. Anesthesia: General anesthesia Estimated blood loss: Approximately 50 cc Complications: None apparent Components implanted: K2M [place] anterior cervical plate system with because interbody allograft bone graft and appropriate screws. We removed prior plate and screws at C5-6 at which were examined and found to be in total Disposition: To recovery room in good stable condition. OPERATIVE INDICATIONS The patient has had long-standing issues in their neck and upper extremities. Many years ago she underwent anterior cervical decompression with discectomy and fusion at C5-6. She did well with this. She had excellent results with her radicular symptoms. However over the past few years she has been having worsening pain at her neck with her upper extremities as well. She been having worsening pain over the past few months with radicular symptoms particular on the right side. She had evaluation was found to have evidence of adjacent level degeneration with significant stenosis and disc herniation at C3-4 C4-5 above her prior fusion. Her symptoms correlated well with her new findings. The patient has been through conservative treatment. We discussed various treatment options including surgery, and the patient wishes to proceed with surgery. With the prior plate we felt that it would be necessary to remove some hardware in order to establish new placement of fixation. We discussed the risk, patient's alternatives and benefits of surgery including but not limited to, risk of bleeding risk of infection, risk of need for further surgery, risk of decreased, loss of motion, muscle function, malunion nonunion, hardware failure, nerve damage, paralysis, heart attack, and . OPERATIVE SUMMARY After discussing all the risks, patient alternatives and benefits at length, the patient elected to proceed with surgical intervention, signed informed consent, and presented for their procedure. The patient was seen and examined in the preoperative holding area and the surgical site was marked. The patient was given antibiotics and brought to the operating room. The patient was positioned on the operating room table in a supine position being careful to pad any bony prominences and pressure points. The patient was sedated and intubated by anesthesia in standard fashion. Once the airway and C- spine were stabilized the patient's arms were padded and tucked at her side, with her shoulders gently taped. The head was placed in a donut pad with the neck in good neutral alignment and position. We were careful to maintain the patient's cervical spine and good neutral alignment and position throughout. The patient was prepped and draped in a normal standard fashion. An appropriate timeout and keystone protocol performed. We were able to proceed with the surgery. The local wound area was infiltrated with local anesthetic. An incision was made transversely approximately 2-1/2 cm over the appropriate levels above the prior incision now at level C4-5. Dissection was taken down subcutaneously to the level of the platysma which was split in line with its fibers. Dissection was taken with a carotid approach, with the trachea and esophagus medial and the carotid sheath laterally. We dissected down to the anterior surface of the vertebral bodies. I was able to expose the plate at C5- 6. Intraoperative x-ray was taken which showed a marker at the appropriate level evaluating the plate and the level directly above at C4-5. I was able to expose the plate and the screws and was able to then use the appropriate scr ewdrivers to unlock the locking device and then removed the screws x 4 and then remove the plate. The entire area was evaluated found to be in total. I was able to ask Taina and explore the fusion and there was solid fusion at C5-6. With the appropriate level positively confirmed, we were able to proceed with discectomy at the appropriate levels starting at C4-5 and then moving C3-4. All of the operative levels were exposed appropriately. The patient had all their twitches back, and there was no evidence of recurrent laryngeal issue. The wound was copiously irrigated and suctioned dry as had been done periodically throughout the case. At the appropriate level/levels, first at C4-5 and then at C3-4 I established an annulotomy with an 11 blade scalpel. A discectomy was performed with a combination of pituitary rongeurs, curettes, a high-speed bur, and Kerrison rongeurs. The posterior longitudinal ligament was taken down as were any posterior osteophytes. This gave good central and bilateral foraminal decompression. There is no evidence of any dural tear or leak. There is significant evidence of disc protrusion with herniation which was remedied with decompression. There was significant pressure particular to the right side at C3-4 which was relieved with the decompression discectomy. The endplates were prepared with a high-speed bur. With the endplates in good parallel position, I was able to size for the appropriate size interbody graft. The wound was irrigated and suctioned dry the graft was prepared and malleted into position. It had good alignment and position with the anterior surface flush with the anterior surface of the vertebral bodies. This was done similarly the appropriate levels. With the grafts intact, I was able to measure and contour and appropriate sized plate. The plate was positioned at the midline over the appropriate levels at C3-4 and 5. Screw holes were established with a hand drill and drill guide. Screws were placed in good alignment and position with excellent bony purchase. They were seated under the locking device. The construct was checked and found to be stable. Intraoperative x-ray was taken which showed good alignment and position of the implants at the appropriate levels. There was no evidence of any dural tear or leak. Good hemostasis was maintained. The wound was copiously irrigated and suctioned dry as had been done periodically throughout the case. The platysma was closed with absorbable suture. The subcutaneous tissue was closed. The subcuticular tissue was closed with absorbable suture. The wound was cleaned and dried and dressed appropriately. A soft cervical collar was placed appropriately. The patient was woken up by anesthesia, extubated, transferred back gently to their hospital bed and brought to the recovery room in good stable condition. The patient will be admitted to the hospital for appropriate postoperative care, medical management and monitoring. We will continue to follow them closely about the postoperative course.
[2023-10-29] MEDS: HYDROmorphone 0.5 MG/0.5 ML SYRINGE IVP PRN ×2 (12:30→18:25)
[2023-10-29] MEDS: BENZOCAINE/MENTHOL LOZENG 1 EACH LOZENGE MUCOUS MEM PRN (14:26)
[2023-10-29] MEDS: DEXAMETHASONE SOD PHOSPHATE 4 MG/ML 1 ML VIAL IV ONE (18:17)
[2023-10-29] MEDS: LACTATED RINGERS 1,000 ML IV SCH (18:17)
[2023-10-29] MEDS: SODIUM CHLORIDE 0.9% 1,000 ML IV SCH (18:18)
[2023-10-29] MEDS: CYCLOBENZAPRINE 10 MG TAB PO SCH (20:42)
[2023-10-29] MEDS: METOPROLOL TARTRATE 25 MG TAB PO SCH (20:42)
[2023-10-29] MEDS: lisinopriL 10 MG TAB PO SCH (20:43)
[2023-10-29] MEDS: HYDROmorphone 1 MG/ML 1 ML SYRINGE IVP PRN (22:31)
[2023-10-30] MEDS: LEVOTHYROXINE 112 MCG TAB PO SCH (05:57)
[2023-10-30] MEDS: hydroCHLOROthiazide 25 MG TAB PO SCH (07:41)
[2023-10-30] MEDS: ASPIRIN 81 MG PO SCH (07:41)
[2023-10-30] MEDS: CYANOCOBALAMIN 500 MCG TAB PO SCH (07:42)
[2023-10-30 07:52] VITALS: BP 118/75; PULSE 102; RESP 16; TEMP 98.9
[2023-10-30] MEDS ORDERED: NON FORMULARY DRUG (Omega-3/Dha/Epa/Fish Oil [Omega-3 Fish Oil 1,000 Mg Sfgl] 1 EACH Capsu PO SCH (09:00)
--- NOTE | 2023-10-30 09:40 | P.DS ---
Providers Date of admission: 10/29/23 05:38 Attending physician: Gerri Harmon Primary care physician: [facility] Course: The patient presented on the day of admission as per their operative note. She underwent anterior cervical decompression with discectomy and fusion C3-4 C4-5 for her stenosis with disc herniation and upper EXTR radiculopathy. She had retained plate at C5-6 which had to be removed at the time of surgery as well. She feels she is doing better this morning. She is tolerating her diet and talking better. Her throat is improving. She feels her upper extremities have made improvement. Her neck is sore. Physical Exam The incision site is clean dry and intact. There is no erythema no drainage. There is no purulence no evidence of infection. The incision site is soft and supple. There is no drainage. Abdomen soft and nontender. Chest has good excursion with deep inspiration and expiration. The patient has active and passive range of motion intact at the upper and lower extremities. There is no acute change in neurologic status. She has sustained dorsiflexion plantarflexion EHL. Her hands have good active and passive range of motion Hospital Course Postoperative day #1 status post anterior cervical decompression with discectomy and fusion C3-4 C4-5 for her discrimination with stenosis. We had to remove her hardware at C5-6 as well. Yesterday the patient was having difficulty swallowing and her voice was quite hoarse. She is coughing up phlegm and is able to swallow better this morning tolerating a soft diet. She is speaking better. She is up and around. Her pains been better controlled today. The patient has been making good progress postoperatively. They have completed the prophylactic antibiotics without any signs or symptoms of infection. The patient has been able to advance their diet, and is tolerating diet adequately. The pain was initially controlled with IV medications and is now controlled appropriately with oral medications. The patient has been able to increase their mobilization. The patient has progressed appropriately. I think they are in good stable condition for discharge today. They will be sent home with appropriate prescriptions. I answered their questions to the best of my ability in a language that they can understand and they are agreeable with the plan. They will follow up as directed. Patient Condition at Discharge: Fair Plan - Discharge Summary Discharge Rx Participant: No New Discharge Prescriptions: New HYDROcodone/APAP 10-325MG [[place] 10-325] 1 tab PO Q6HR PRN 7 Days #28 tab PRN Reason: Pain HYDROcodone/APAP 10-325MG [[place] 10-325] 1 tab PO Q6HR PRN 3 Days #12 tab PRN Reason: Pain No Action lisinopriL [Lisinopril] 10 mg PO HS Levothyroxine Sodium [Synthroid] 112 mcg PO DAILY hydroCHLOROthiazide [Hydrodiuril] 25 mg PO DAILY Cholecalciferol [Vitamin D3 (25 Mcg = 1000 Iu)] 50 mcg PO MO Aspirin 81 mg PO DAILY #0 chew Nitroglycerin Sl Tabs [Nitrostat] 0.4 mg SUBLINGUAL Q5M PRN #30 tab PRN Reason: Chest Pain Metoprolol Tartrate [Lopressor] 25 mg PO BID Meloxicam [Mobic] 15 mg PO DAILY Acetaminophen [Tylenol Arthritis] 650 mg PO DIRECTED PRN PRN Reason: Pain Roulette-3/Dha/Epa/Fish Oil [Roulette-3 Fish Oil 1,000 mg Sfgl] 1 each PO DAILY Cyanocobalamin (Vitamin B-12) [Vitamin B-12] 1,000 mcg PO DAILY Cyclobenzaprine [Flexeril] 10 mg PO HS 30 Days #30 tab HYDROcodone/APAP 10-325MG [[place] 10-325] 1 tab PO TID PRN 30 Days #90 tab PRN Reason: Pain Discharge Medication List Levothyroxine Sodium [Synthroid] 112 mcg PO DAILY 06/27/14 [History] lisinopriL [Lisinopril] 10 mg PO HS 06/27/14 [History] hydroCHLOROthiazide [Hydrodiuril] 25 mg PO DAILY 08/11/14 [History] Cholecalciferol [Vitamin D3 (25 Mcg = 1000 Iu)] 50 mcg PO MO 12/18/20 [History] Aspirin 81 mg PO DAILY #0 chew 12/20/20 [Rx] Nitroglycerin Sl Tabs [Nitrostat] 0.4 mg SUBLINGUAL Q5M PRN #30 tab 12/20/20 [Rx] Cyclobenzaprine [Flexeril] 10 mg PO HS 30 Days #30 tab 09/01/23 [Rx] HYDROcodone/APAP 10-325MG [[place] 10-325] 1 tab PO TID PRN 30 Days #90 tab 09/01/23 [Rx] Acetaminophen [Tylenol Arthritis] 650 mg PO DIRECTED PRN 10/23/23 [History] Cyanocobalamin (Vitamin B-12) [Vitamin B-12] 1,000 mcg PO DAILY 10/23/23 [History] Meloxicam [Mobic] 15 mg PO DAILY 10/23/23 [History] Metoprolol Tartrate [Lopressor] 25 mg PO BID 10/23/23 [History] Roulette-3/Dha/Epa/Fish Oil [Roulette-3 Fish Oil 1,000 mg Sfgl] 1 each PO DAILY 10/23/23 [History] HYDROcodone/APAP 10-325MG [[place] 10-325] 1 tab PO Q6HR PRN 3 Days #12 tab 10/29/23 [Rx] HYDROcodone/APAP 10-325MG [[place] 10-325] 1 tab PO Q6HR PRN 7 Days #28 tab 10/30/23 [Rx] Follow up Appointment(s)/Referral(s): Gerri Harmon DO [Doctor of Osteopathic Medicine] - 11/11/23 10:00 am Patient Instructions/Handouts: *[facility] - ([place]) Cervical Surgery Discha rge Instructions, *[facility] - (Anesthesia) Discharge Instructions Outpatient Surgery Activity/Diet/Wound Care/Special Instructions: No smoking . No smoking . No smoking . keep site clean. May shower with waterproof Tegaderm intact. Do not soak in a tub. After 72 hours postoperatively, patient May remove dressing and then may shower with area uncovered. Leave glue intact and allow it to fray off on its own. May ambulate as tolerated. Avoid heavy or rigorous activity. No repetitive bending twisting or lifting. No overhead work. Discharge Disposition: HOME SELF-CARE
[2023-11-03] MEDS ORDERED: CHOLECALCIFEROL 25 MCG (1000 IU) TABLET PO SCH (09:00)
== END 2023-10-30 10:19 | disposition home or self-care (01) | DRG 472 ==
LOC: 2ORMAIN 05:38 → EDSTATUS 10:00 → 4SSUR 12:57
PROVIDERS: ADMIT Orthopaedic Surgery Orthopaedic Surgery of the Spine; ATTEND Orthopaedic Surgery Orthopaedic Surgery of the Spine
PROC: 0RB30ZZ Excision of Cervical Vertebral Disc, Open Approach (ICD-10-PCS; 2023-10-29)
PROC: 0PP304Z Removal of Internal Fixation Device from Cervical Vertebra, Open Approach (ICD-10-PCS; 2023-10-29)
PROC: 01N10ZZ Release Cervical Nerve, Open Approach (ICD-10-PCS; 2023-10-29)
PROC: 00NW0ZZ Release Cervical Spinal Cord, Open Approach (ICD-10-PCS; 2023-10-29)
PROC: 4A11X4G Monitoring of Peripheral Nervous Electrical Activity, Intraoperative, External Approach (ICD-10-PCS; 2023-10-29)
PROC: 0RG20A0 Fusion of 2 or more Cervical Vertebral Joints with Interbody Fusion Device, Anterior Approach, Anterior Column, Open Approach (ICD-10-PCS; principal; 2023-10-29 07:30)
DX: M50.121 Cervical disc disorder at C4-C5 level with radiculopathy (principal); M50.022 Cervical disc disorder at C5-C6 level with myelopathy; M48.02 Spinal stenosis, cervical region; Z88.8 Allergy status to other drugs, medicaments and biological substances; M25.78 Osteophyte, vertebrae; Z88.0 Allergy status to penicillin; Z68.34 Body mass index [BMI] 34.0-34.9, adult; M19.90 Unspecified osteoarthritis, unspecified site; I10 Essential (primary) hypertension; E03.9 Hypothyroidism, unspecified; Z79.890 Hormone replacement therapy; M43.10 Spondylolisthesis, site unspecified; E66.9 Obesity, unspecified; F17.210 Nicotine dependence, cigarettes, uncomplicated; M25.511 Pain in right shoulder
CPT/HCPCS: 72020

== ENCOUNTER → 2024-08-16 | Outpatient (CLI) | payer OTHER ==
--- NOTE | 2024-08-16 21:02 | MR ---
INDICATION: Patient age:Female; 63 years old; Reason for study: M43.12 SPONDYLOLISTHESIS, CERVICAL REGION; [facility]. COMPARISON: Cervical spine radiograph 10/29/2023, 11/17/2019, MR cervical spine 05/24/2014. TECHNIQUE: Multi planar, multi sequence imaging was performed of the cervical spine before and after the uneventful administration of 7 mL of Gadobutrol intravenously. FINDINGS: Postsurgical changes from anterior cervical fusion involving C3-C5. This creates susceptibility artif act which limits evaluation. Straightening of the cervical spine. No spondylolisthesis. The cervical vertebral bodies have preserved heights. Bone signal is within normal limits. Multilevel degenerativ e disc disease is noted. The spinal cord is unremarkable with regards to their signal intensity and m orphology. No prevertebral soft tissue swelling. No abnormal contrast enhancement. Discs: Multilevel disc desiccation is present. C2-C3: Broad-based disc bulge without significant effacement of the anterior thecal sac. Uncovertebra l joint hypertrophy with mild right neuroforaminal stenosis. Left neural foramen is patent. C3-C4: No significant central canal stenosis. Postsurgical changes. Uncovertebral joint hypertrophy w ith mild bilateral neuroforaminal stenosis. C4-C5: No significant central canal stenosis. Postsurgical changes. Uncovertebral joint hypertrophy w ith severe left neuroforaminal stenosis. The right neural foramen is patent. C5-C6: Posterior disc osteophyte complex with moderate effacement of the anterior thecal sac. There i s abutment of the spinal cord. Uncovertebral joint hypertrophy with moderate bilateral neural foramin al stenosis. C6-C7: Broad-based disc bulge with mild effacement of the anterior thecal sac. Uncovertebral joint hy pertrophy with moderate bilateral neural foraminal stenosis. C7-T1: No significant canal stenosis. Uncovertebral joint hypertrophy with mild bilateral neural fora alisha stenosis. Other: None. IMPRESSION: 1. Postsurgical changes from cervical fusion C3-C5. 2. Multilevel disc degeneration with associated osteoarthritic changes as described above. This is mo st pronounced at C5-C6 with moderate central canal stenosis secondary to posterior disc osteophyte co mplex. [facility], , 08/16/2024 8:59 PM
== END | disposition home or self-care (01) ==
LOC: RADMRIMAIN 19:07
PROVIDERS: ATTEND Orthopaedic Surgery Orthopaedic Surgery of the Spine
DX: M43.12 Spondylolisthesis, cervical region (principal); M25.78 Osteophyte, vertebrae; M48.02 Spinal stenosis, cervical region; M50.30 Other cervical disc degeneration, unspecified cervical region; Z98.1 Arthrodesis status
CPT/HCPCS: 72156; A9585

== ENCOUNTER 2025-02-14 10:45 | Day surgery (SDC) | payer OTHER ==
[2025-02-10 12:40] VITALS: BMI 33.2
[~2025-02-14 10:45] MED LIST changes: +HYDROmorphone 0.5 MG/0.5 ML SYRINGE IVP PRN; -LACTATED RINGERS 1,000 ML IV ONE; -LACTATED RINGERS 1,000 ML IV SCH; -LIDOCAINE 1% (10MG/ML) FOR IV START INTRADERMA ONE; -MIDAZOLAM 2 MG/2 ML VIAL ONE; +Pre Op ABX Message 1 EACH MISC MISCELLANE ONE; -ROPIVACAINE 5MG/ML 20ML VIAL ONE; -fentaNYL (PF) 50 MCG/ML 2 ML AMP ONE; -methylPREDNISolone ACETATE 40 MG/ML 1 ML VIAL ONE
[2025-02-14] MEDS: IV FLUID CONTINUATION 1,000 ML IV ONE (11:10)
[2025-02-14 11:21] VITALS: TEMP 97.8
[2025-02-14] MEDS: LACTATED RINGERS 1,000 ML IV SCH (11:46)
[2025-02-14] MEDS: ONDANSETRON 4 MG/2 ML VIAL IVP ONE (11:46)
[2025-02-14] MEDS ORDERED: KETAMINE HCL IN 0.9 % NACL 50 MG/5 ML SYRINGE ONE (12:36)
[2025-02-14] MEDS ORDERED: MIDAZOLAM 2 MG/2 ML VIAL ONE (12:36)
[2025-02-14] MEDS ORDERED: PROPOFOL 10 MG/ML 20 ML VIAL IV ONE (12:36)
[2025-02-14] MEDS: LIDOCAINE 1%-EPI 1:100,000 20 ML VIAL SQ ONE (12:50)
[2025-02-14] MEDS: BUPIVACAINE (PF) 0.5% 30 ML VIAL SQ ONE (12:50)
[2025-02-14 13:35] VITALS: BP 125/69; PULSE 76; RESP 16
--- NOTE | 2025-02-14 21:27 | P.OP ---
Date of Procedure: 02/14/25 Preoperative Diagnosis: Right Carpal tunnel syndrome Postoperative Diagnosis: same Procedure(s) Performed: Right open carpal tunnel release Anesthesia: MAC Surgeon: Patience Churchill Estimated Blood Loss (ml): 1 Condition: stable Disposition: PACU Indications for Procedure: Patient has numbness and tingling in her fingers in the median nerve distribution secondary to double crush with carpal tunnel syndrome. She has done all she can for the cervical issues and we have decided to proceed with surgical treatment of the carpal tunnel syndrome. Description of Procedure: The patient, operative extremity, and procedure were identified in the preoperative holding area. After informed consent was obtained, the patient was brought back to the operating room and a local block was performed with lidocaine with epinephrine and 0.5% marcaine. The extremity was then prepped and draped in normal sterile fashion with a tourniquet on the patients brachium. A formal timeout was performed and a longitudinal incision was made in the palm just proximal to kaplans cardinal line in line with the radial aspect of the ring finger. Dissection was taken down to the palmar aponeurosis. This was released and dissection was continued to the transverse carpal ligament. This was visualized and divided under from the ulnar side of the ligament with a scalpel and scissors. A hemostat was inserted and gently spread confirming the release of the entire carpal tunnel. The median nerve was visualized and was found to be in good condition albeit with an hourglass shape. Hemostasis was achieved and the wound was closed with monocryl and skin glue. Wound was dressed with adaptic, gauze, and an evangelina wrap. Patient tolerated the procedure well and was brought back to PACU in stable condition.
== END 2025-02-14 14:00 | disposition home or self-care (01) ==
LOC: OR 10:45
PROVIDERS: ATTEND Orthopaedic Surgery Hand Surgery
DX: G56.01 Carpal tunnel syndrome, right upper limb (principal); I25.2 Old myocardial infarction; I10 Essential (primary) hypertension; E78.5 Hyperlipidemia, unspecified; E07.9 Disorder of thyroid, unspecified; F17.210 Nicotine dependence, cigarettes, uncomplicated; M54.50 Low back pain, unspecified; Z88.0 Allergy status to penicillin; Z88.6 Allergy status to analgesic agent; Z88.8 Allergy status to other drugs, medicaments and biological substances; Z79.890 Hormone replacement therapy; Z79.899 Other long term (current) drug therapy
CPT/HCPCS: 64721; J2250; J2405; J2704; J0665